=== PATIENT | male | born 1945 | race Caucasian/White ===

== ENCOUNTER 2018-10-26 15:56 | Observation (INO) | payer OTHER, MEDICARE ==
[~2018-10-26 15:56] MED LIST: REGADENOSON INJ 0.4 MG/5 ML DISP.SYRIN IV ONE
[2018-10-26] MEDS ORDERED: ASPIRIN 81 MG TABLET, CHEWABLE PO ONE (17:22)
--- NOTE | 2018-10-26 17:27 | ER Document Report ---
ED Medical Screen (RME) - General Chief Complaint: Chest Pain Stated Complaint: CHEST PAIN Time Seen by Provider: 10/26/18 17:15 Notes: 73-year-old male presents emergency department complaining of peripheral edema, fluid retention, intermittent left-sided chest pain and shortness of breath for the past several days. Patient states he knows he should have come in sooner but he was trying to avoid the hospital. Patient states that the chest pain is left-sided and dull and aching. He is also been feeling generally weak. He is worried that his pacemaker may be failing because this is how he felt before he got his pacemaker. TRAVEL OUTSIDE OF THE [place] IN LAST 30 DAYS: No - Related Data Allergies/Adverse Reactions: No Known Allergies Allergy (Unverified 10/26/18 15:57) Past Medical History - General Information source: Patient - Social History Chew tobacco use (# tins/day): No Frequency of alcohol use: Occasional Drug Abuse: None - Past Medical History Cardiac Medical History: Reports: Hx Hypercholesterolemia, Hx Hypertension Endocrine Medical History: Reports: Hx Diabetes Mellitus Type 2 Renal/ Medical History: Denies: Hx Peritoneal Dialysis Past Surgical History: Reports: Hx Appendectomy, Hx Cardiac Surgery - pacemaker, quadruple bypass, Hx Orthopedic Surgery - back, susan knees Review of Systems - Review of Systems Constitutional: See HPI Respiratory: See HPI Gastrointestinal: See HPI Physical Exam - Vital signs Vitals: Temp Pulse Resp BP Pulse Ox 98.7 F 71 17 141/79 H 95 10/26/18 16:12 10/26/18 16:12 10/26/18 16:12 10/26/18 16:12 10/26/18 16:12 Interpretation: Normal - General General appearance: Appears well, Alert - Respiratory Respiratory status: No respiratory distress Chest status: Nontender Breath sounds: Normal Chest palpation: Normal - Cardiovascular Rhythm: Regular Heart sounds: Normal auscultation Murmur: No Course - Vital Signs Vital signs: Temp Pulse Resp BP Pulse Ox 98.7 F 71 17 141/79 H 95 10/26/18 16:12 10/26/18 16:12 10/26/18 16:12 10/26/18 16:12 10/26/18 16:12
[2018-10-26 18:11] LABS: ABSOLUTE BASOPHILS # (AUTO) 0.1 10^3/uL (0.0-0.2); ABSOLUTE EOSINOPHILS # (AUTO) 0.2 10^3/uL (0.0-0.6); ABSOLUTE LYMPHOCYTES (AUTO) 1.6 10^3/uL (0.5-4.7); ABSOLUTE MONOCYTES (AUTO) 0.6 10^3/uL (0.1-1.4); ABSOLUTE NEUT (AUTO) 5.4 10^3/uL (1.7-8.2); BASOPHILS % (AUTO) 1.2 % (0-2); EOSINOPHILS % (AUTO) 2.6 % (0-6); HEMATOCRIT 42.5 % (37.9-51.0); HEMOGLOBIN 14.4 g/dL (13.5-17.0); LYMPHOCYTES % (AUTO) 19.8 % (13-45); MEAN CORPUSCULAR HEMOGLOBIN 33.4 pg (27.0-33.4); MEAN CORPUSCULAR HGB CONC 33.8 g/dL (32.0-36.0); MEAN CORPUSCULAR VOLUME 99 fl (80-97); MONOCYTES % (AUTO) 7.7 % (3-13); PLATELET COUNT 157 10^3/uL (150-450); RED CELL DISTRIBUTION WIDTH 13.8 % (11.5-14.0); SEGMENTED NEUTROPHILS % (AUTO) 68.7 % (42-78); TOTAL CELLS COUNTED % (AUTO) 100 %; WHITE BLOOD COUNT 7.9 10^3/uL (4.0-10.5)
[2018-10-26 18:28] LABS: ALANINE AMINOTRANSFERASE 21 U/L (21-72); ALBUMIN 4.6 g/dL (3.5-5.0); ALKALINE PHOSPHATASE 89 U/L (38-126); ANION GAP 7 (5-19); ASPARTATE AMINO TRANSFERASE 24 U/L (17-59); BILIRUBIN,DIRECT 0.4 mg/dL (0.0-0.4); BLOOD UREA NITROGEN 47 mg/dL (7-20); CALCIUM 11.2 mg/dL (8.4-10.2); CARBON DIOXIDE 32 mmol/L (22-30); CHLORIDE 104 mmol/L (98-107); CREATINE KINASE 60 U/L (55-170); GLUCOSE 176 mg/dL (75-110); POTASSIUM 5.3 mmol/L (3.6-5.0); SODIUM 143.1 mmol/L (137-145); TOTAL PROTEIN 7.6 g/dL (6.3-8.2)
[2018-10-26 18:40] LABS: CREATINE KINASE MB 1.96 ng/mL (<4.55); TROPONIN I 0.013 ng/mL
--- NOTE | 2018-10-26 19:10 | RADIOLOGY REPORT (SQ) ---
EXAM DESCRIPTION: CHEST SINGLE VIEW COMPLETED DATE/TIME: 10/26/2018 6:28 pm REASON FOR STUDY: SOB, chest pain COMPARISON: None. EXAM PARAMETERS: NUMBER OF VIEWS: One view. TECHNIQUE: Single frontal radiographic view of the chest acquired. RADIATION DOSE: NA LIMITATIONS: None. FINDINGS: LUNGS AND PLEURA: No opacities, masses or pneumothorax. No pleural effusion. MEDIASTINUM AND HILAR STRUCTURES: No masses. Contour normal. HEART AND VASCULAR STRUCTURES: Cardiomegaly. No pulmonary edema. BONES: No acute findings. HARDWARE: Pacemaker/defibrillator. Sternotomy wires. OTHER: No other significant finding. IMPRESSION: Cardiomegaly without pulmonary edema. TECHNICAL DOCUMENTATION: JOB ID: [id number] [employer]- All Rights Reserved Reading location - IP/workstation name: [email or web address]
--- NOTE | 2018-10-26 19:10 | EKG REPORT ---
SEVERITY:- ABNORMAL ECG - ATRIAL-SENSED VENTRICULAR-PACED COMPLEXES : Confirmed by: Jamel Marshall 26-Oct-2018 19:09:11
--- NOTE | 2018-10-26 19:30 | ER Document Report ---
ED Cardiac - General Chief Complaint: Chest Pain Stated Complaint: CHEST PAIN Time Seen by Provider: 10/26/18 17:15 Notes: Patient is a 73-year-old male that comes to the emergency department for chief complaint of intermittent chest pain since yesterday, he also reports shortness of breath on exertion and with lying flat since yesterday. He denies cough, fever, nausea/vomiting. He states that he is starting to get swelling on his legs, he has had 6 pound weight gain for the past over the past 3 days, he is taking his Lasix (40 mg a.m. and p.m.). Past medical history includes CABG, AICD placement 5 years ago, chronic kidney disease, insulin-dependent diabetes. Has not had cardiac catheterization since 1996, has not had stress test for the past 3 years. Had cardiology in [place], recently moved here (March 2017). Former smoker. He states he is wondering if his pacemaker is doing okay, had this done 5 years ago, had 6-year battery. TRAVEL OUTSIDE OF THE [place] IN LAST 30 DAYS: No - Related Data Allergies/Adverse Reactions: No Known Allergies Allergy (Unverified 10/26/18 15:57) Past Medical History - General Information source: Patient - Social History Smoking Status: Never Smoker Chew tobacco use (# tins/day): No Frequency of alcohol use: Occasional Drug Abuse: None Lives with: Alone Family History: Reviewed & Not Pertinent Patient has suicidal ideation: No Patient has homicidal ideation: No - Past Medical History Cardiac Medical History: Reports: Hx Coronary Artery Disease, Hx Hypercholesterolemia, Hx Hypertension Endocrine Medical History: Reports: Hx Diabetes Mellitus Type 2 Renal/ Medical History: Denies: Hx Peritoneal Dialysis Past Surgical History: Reports: Hx Appendectomy, Hx Cardiac Surgery - pacemaker, quadruple bypass, Hx Orthopedic Surgery - back, susan knees - Immunizations Immunizations up to date: Yes Hx Diphtheria, Pertussis, Tetanus Vaccination: Yes Review of Systems - Review of Systems Constitutional: No symptoms reported EENT: No symptoms reported Cardiovascular: See HPI Respiratory: No symptoms reported Gastrointestinal: No symptoms reported Genitourinary: No symptoms reported Male Genitourinary: No symptoms reported Musculoskeletal: No symptoms reported Skin: No symptoms reported Hematologic/Lymphatic: No symptoms reported Neurological/Psychological: No symptoms reported Physical Exam - Vital signs Vitals: Temp Pulse Resp BP Pulse Ox 98.7 F 71 17 141/79 H 95 10/26/18 16:12 10/26/18 16:12 10/26/18 16:12 10/26/18 16:12 10/26/18 16:12 - Notes Notes: GENERAL: Alert, interacts well. No acute distress. HEAD: Normocephalic, atraumatic. EYES: Pupils equal, round, and reactive to light. Extraocular movements intact. ENT: Oral mucosa moist, tongue midline. Oropharynx unremarkable. Airway patent. Nares patent, no nasal septal hematoma, TM's intact. NECK: Full range of motion. Supple. Trachea midline. LUNGS: Normal respiratory rate, no signs of distress. Faint rales in the left lower lung bases, otherwise clear. HEART: Regular rate and rhythm. No murmur ABDOMEN: Soft, non-tender. Non-distended. Bowel sounds present in all 4 quadrants. GENITOURINARY: Deferred EXTREMITIES: Moves all 4 extremities spontaneously. Minimal bilateral lower extremity edema, no significant pitting. Normal radial and dorsalis pedis pulses bilaterally. No cyanosis. BACK: no cervical, thoracic, lumbar midline tenderness. No saddle anesthesia, normal distal neurovascular exam. NEUROLOGICAL: Alert and oriented x3. Normal speech. [cranial nerves II through XII grossly intact]. PSYCH: Normal affect, normal mood. SKIN: Warm, dry, normal turgor. No rashes or lesions noted. Course - Re-evaluation Re-evalutation: EKG shows sinus rhythm with atrial sensed ventricular paced complexes at a rate of 72. No T wave inversions or ST segment changes in consecutive leads, no comparison to prior. Chest x-ray without overt failure, shows cardiomegaly. CBC generally unremarkable. Chemistry shows elevated creatinine but patient reports this is probably chronic, BNP is elevated at greater than 5000 but this is also possibly chronic. Because of patient's dyspnea on exertion, weight gain, soft rales on exam, he was given a dose of Lasix. [employer] interrogation was performed for the pacemaker, I spoke to Jose Juan, he states that the battery is doing well, there is one year left on the battery, last interrogation was 1 year ago, no concerning findings noted otherwise. Patient is chest pain-free on my reevaluation, I discussed the workup. Because patient has not had recent workup, has no local follow-up, no local economics professor, and he has been having chest pain and dyspnea on exertion will discuss with hospitalist for admission. Patient states agreement with this plan. 10/26/18 21:[address] Ron, internal medicine, patient will be admitted to telemetry observation. - Vital Signs Vital signs: Temp Pulse Resp BP Pulse Ox 98.5 F 71 16 152/86 H 94 10/26/18 19:58 10/26/18 16:12 10/26/18 22:01 10/26/18 22:01 10/26/18 22:01 - Laboratory Result Diagrams: 10/26/18 17:45 10/26/18 17:45 Laboratory results interpreted by me: 10/26/18 10/26/18 10/26/18 17:45 17:45 17:45 RBC 4.30 L MCV 99 H Potassium 5.3 H Carbon Dioxide 32 H BUN 47 H Creatinine 2.10 H Est GFR ( Amer) 38 L Est GFR (Non-Af Amer) 31 L Glucose 176 H Calcium 11.2 H NT-Pro-B Natriuret Pep 5650 H Discharge - Discharge Clinical Impression: Dyspnea on exertion Chest pain Qualifiers: Chest pain type: unspecified Qualified Code(s): R07.9 - Chest pain, unspecified Condition: Stable Disposition: ADMITTED OBSERVATION Admitting Provider: Hospitalist Unit Admitted: Telemetry
[2018-10-26] MEDS ORDERED: FUROSEMIDE INJ/PF 40 MG/4 ML SDV IV ONE (21:03)
[2018-10-26] MEDS ORDERED: ONDANSETRON 4 MG TAB.RAPDIS PO PRN (21:13)
[2018-10-26] MEDS ORDERED: MAG HYDROX/AL HYDROX/SIMETH SUSP 30 ML UDCUP PO PRN (21:13)
[2018-10-26] MEDS ORDERED: ONDANSETRON HCL INJ/PF 4 MG/2 ML SDV IV PRN (21:13)
[2018-10-26] MEDS ORDERED: MAGNESIUM HYDROXIDE SUSP 30 ML UDCUP PO PRN (21:13)
[2018-10-26] MEDS ORDERED: NITROGLYCERIN 0.4 MG/TAB 25 TAB/BOTTLE SL PRN (21:19)
[2018-10-26] MEDS ORDERED: ACETAMINOPHEN 325 MG TABLET PO PRN (21:19)
[2018-10-26] MEDS ORDERED: MORPHINE SULFATE 10 MG/ML INJ IV PRN ×2 (21:19)
[2018-10-26] MEDS ORDERED: ACETAMINOPHEN 650 MG SUPP.RECT PR PRN (21:19)
[2018-10-26] MEDS ORDERED: GLUCAGON,HUMAN RECOMB 1 MG INJ IM PRN (21:53)
[2018-10-26] MEDS ORDERED: DEXTROSE 50%-WATER 25 GM/50 ML DISP.SYRIN IV PRN ×2 (21:53)
[2018-10-26] MEDS ORDERED: DEXTROSE 40% GEL 15 GM TUBE PO PRN ×2 (21:53)
[2018-10-26] MEDS ORDERED: INSULIN GLARGINE,HUM.REC.ANLOG 300 UNIT/3 ML INSULN.PEN SUBCUT ONE (22:15)
[2018-10-26] MEDS: TRAZODONE HCL 50 MG TABLET PO SCH (22:31)
[2018-10-26] MEDS: ATORVASTATIN CALCIUM 80 MG TABLET PO SCH (22:31)
[2018-10-26] MEDS: HEPARIN SOD (PORCINE) 5,000 UNIT/ML 1 ML SYRINGE SUBCUT SCH (22:31)
--- NOTE | 2018-10-27 00:04 | PDOC H&P ---
History of Present Illness Admission Date/PCP: 10/26/2018 Patient complains of: Chest pain History of Present Illness: YESIKA PARADA is a 73 year old male who presented to the emergency room with a 1 day history of intermittent chest pain associated with dyspnea on exertion, orthopnea and a 6 pound weight gain over the last 72 hours. He further describes his pain as a mild to moderate heaviness/pressure over the left anterior mid-chest, radiating with sharp stabbing sensations in his left a nterior axilla, occurring episodically every 5 or 6 minutes while he is awake, lasting for a 5-6 seconds and resolving spontaneously. He admits to having similar episodes in the past associated with his coronary artery disease. He has not identified any aggravating or ameliorating factors for his chest pain. In the emergency room he was found to have negative cardiac enzymes x1 and an EKG that showed no evidence of acute myocardial ischemia or injury. Because of his extensive cardiac history and his new episode of intermittent chest pain he was admitted to the hospital on observation status for further evaluation including serial cardiac enzymes, serial EKG assessments and a cardiac stress test to evaluate his chest pain as well as an echocardiogram to assess his congestive heart failure. Past Medical History Cardiac Medical History: Reports: Congestive Heart Failure, Coronary Artery Disease, Hyperlipidema, Hypertension Denies: Atrial Fibrillation Pulmonary Medical History: Denies: Asthma, Chronic Obstructive Pulmonary Disease (COPD), Tuberculosis EENT Medical History: Reports: None Neurological Medical History: Denies: Hemorrhagic CVA, Ischemic CVA, Seizures Endocrine Medical History: Reports: Diabetes Mellitus Type 2 Denies: Diabetes Mellitus Type 1, Hyperthyroidism, Hypothyroidism Renal/ Medical History: Reports: Chronic Kidney Disease Denies: Nephrolithiasis Malignancy Medical History: Reports: None GI Medical History: Denies: Cirrhosis, Crohn's Disease, Hepatitis, Ulcerative Colitis Musculoskeltal Medical History: Reports: Arthritis, Other - Chronic lower back pain Denies: Gout Skin Medical History: Denies: Eczema, Psoriasis Psychiatric Medical History: Denies: Alcohol Dependency, Substance Abuse, Tobacco Dependency Traumatic Medical History: Reports: None Hematology: Denies: Anemia, Bleeding Tendencies Infectious Medical History: Reports: None Past Surgical History Past Surgical History: Reports: Appendectomy, Cardiac Catheterization, Coronary Artery Bypass Graft, Internal Defibrillator, Orthopedic Surgery - back (lumbar), bilateral knees Social History Information Source: Patient Lives with: Other - Yifan Parada (relationship not disclosed) Smoking Status: Former Smoker Frequency of Alcohol Use: Occasional Hx Recreational Drug Use: No Drugs: None Hx Prescription Drug Abuse: No - Advance Directive Resuscitation Status: Full Code Surrogate healthcare decision maker:: Yifan Parada Family History Family History: CAD - Mother, father, brothers and sisters Parental Family History Reviewed: Yes Children Family History Reviewed: No Sibling(s) Family History Reviewed.: Yes Medication/Allergy Home Medications: Allopurinol [Zyloprim 100 mg Tablet] 1 tab PO DAILY 10/26/18 Aspirin [Aspirin 81 mg Chewable Tablet] 1 tab PO DAILY 10/26/18 Atorvastatin Calcium [Lipitor 80 mg Tablet] 1 tab PO QHS 10/26/18 Carvedilol 1 tab PO DAILY 10/26/18 Furosemide [Lasix] 1 tab PO DAILY 10/26/18 Insulin Glargine,Hum.rec.anlog [Lantus Insulin 100 Unit/mL] 20 units SUBCUT QHS 10/26/18 Insulin Regular, Human [Novolin R] 1 applic SUBCUT TID 10/26/18 Lisinopril [Prinivil] 1 tab PO DAILY 10/26/18 Multivitamin [Multivitamins] 1 tab PO DAILY 10/26/18 No Home Medications 10/26/18 Pregabalin [Lyrica 25 mg Capsule] 1 tab PO BID 10/26/18 Trazodone HCl 25 mg PO QHS 10/26/18 Allergies/Adverse Reactions: No Known Allergies Allergy (Unverified 10/26/18 15:57) Review of Systems Constitutional: PRESENT: as per HPI, weight gain. ABSENT: chills, fever(s) Eyes: ABSENT: visual disturbances, other - Ocular pain Ears: ABSENT: hearing changes, other - Ear pain Nose, Mouth, and Throat: ABSENT: mouth pain, sore throat Cardiovascular: PRESENT: as per HPI, chest pain, dyspnea on exertion, edema, orthropnea. ABSENT: palpitations Respiratory: PRESENT: as per HPI, dyspnea. ABSENT: cough Gastrointestinal: ABSENT: abdominal pain, constipation, diarrhea, nausea, vomiting Genitourinary: ABSENT: dysuria, hematuria Musculoskeletal: PRESENT: back pain - Chronic lumbar pain X 3-4 years. ABSENT: deformity, joint swelling Integumentary: ABSENT: pruritus, rash Neurological: ABSENT: confusion, convulsions, memory loss, syncope, tremor(s), vertigo Psychiatric: ABSENT: anxiety, depression Endocrine: ABSENT: cold intolerance, heat intolerance Hematologic/Lymphatic: ABSENT: easy bleeding, easy bruising Physical Exam Vital Signs: Temp Pulse Resp BP Pulse Ox 98.7 F 71 14 152/81 H 96 10/26/18 16:12 10/26/18 16:12 10/26/18 20:01 10/26/18 20:01 10/26/18 20:01 Intake & Output 10/24/18 10/25/18 10/26/18 23:59 23:59 23:59 Weight 120.4 kg General appearance: PRESENT: no acute distress, cooperative, obese Head exam: PRESENT: atraumatic, normocephalic Eye exam: PRESENT: EOMI. ABSENT: conjunctival injection, scleral icterus Ear exam: PRESENT: normal external ear exam. ABSENT: bleeding, drainage Mouth exam: PRESENT: dry mucosa, neck supple Neck exam: ABSENT: JVD, thyromegaly, tracheal deviation Respiratory exam: PRESENT: clear to auscultation susan, symmetrical, unlabored Cardiovascular exam: PRESENT: RRR. ABSENT: clicks, gallop, rubs Pulses: PRESENT: normal radial pulses, normal dorsalis pedis pul Vascular exam: PRESENT: normal capillary refill. ABSENT: pallor GI/Abdominal exam: PRESENT: normal bowel sounds, soft Rectal exam: PRESENT: deferred Extremities exam: PRESENT: pedal edema - Trace to 1+ bilaterally. ABSENT: joint swelling Musculoskeletal exam: ABSENT: deformity, dislocation Neurological exam: PRESENT: alert, oriented to person, oriented to place, oriented to time, oriented to situation, CN II-XII grossly intact. ABSENT: motor sensory deficit Psychiatric exam: PRESENT: appropriate affect, normal mood Skin exam: PRESENT: dry, intact, warm. ABSENT: jaundice, rash, urticaria Results Laboratory Results: 10/26/18 17:45 10/26/18 17:45 10/26/18 10/26/18 17:45 17:45 WBC 7.9 RBC 4.30 L Hgb 14.4 Hct 42.5 MCV 99 H MCH 33.4 MCHC 33.8 RDW 13.8 Plt Count 157 Seg Neutrophils % 68.7 Lymphocytes % 19.8 Monocytes % 7.7 Eosinophils % 2.6 Basophils % 1.2 Absolute Neutrophils 5.4 Absolute Lymphocytes 1.6 Absolute Monocytes 0.6 Absolute Eosinophils 0.2 Absolute Basophils 0.1 Sodium 143.1 Potassium 5.3 H Chloride 104 Carbon Dioxide 32 H Anion Gap 7 BUN 47 H Creatinine 2.10 H Est GFR ( Amer) 38 L Est GFR (Non-Af Amer) 31 L Glucose 176 H Calcium 11.2 H Total Bilirubin 1.0 AST 24 ALT 21 Alkaline Phosphatase 89 Total Protein 7.6 Albumin 4.6 10/26/18 10/26/18 10/26/18 17:45 17:45 17:45 Creatine Kinase 60 CK-MB (CK-2) 1.96 Troponin I 0.013 NT-Pro-B Natriuret Pep 5650 H Impressions: Chest X-Ray 10/26/18 17:23 IMPRESSION: Cardiomegaly without pulmonary edema. Assessment & Plan - Diagnosis (1) Acute on chronic congestive heart failure Qualifiers: Heart failure type: unspecified Qualified Code(s): I50.9 - Heart failure, unspecified Is this a current diagnosis for this admission?: Yes Plan: Patient was treated initially with intravenous furosemide in the emergency room. His furosemide will be changed to torsemide at a slightly increased equivalent dose once daily for further control of his congestive heart failure additionally his lisinopril will be exchanged for valsartan and a roughly equivalent dose for treatment of his heart failure. An echocardiogram will be obtained with Dr. Eva heaton. Clinical reevaluation during the patient's hospital course will be ongoing. (2) HTN (hypertension) Qualifiers: Hypertension type: essential hypertension Qualified Code(s): I10 - Essential (primary) hypertension Is this a current diagnosis for this admission?: Yes Plan: Patient will be continued on his current regiment with the exception of changes made for his renal function. Vital signs and laboratory values (metabolic profile and serum magnesium) will be monitored on a regular basis throughout his hospital course to assess the efficacy of therapeutic changes. (3) HLD (hyperlipidemia) Qualifiers: Hyperlipidemia type: unspecified Qualified Code(s): E78.5 - Hyperlipidemia, unspecified Is this a current diagnosis for this admission?: Yes Plan: Patient will be continued on his current statin therapy and a lipid profile will be obtained to assess the efficacy of his current treatment. (4) CKD (chronic kidney disease) stage 3, GFR 30-59 ml/min Is this a current diagnosis for this admission?: Yes Plan: Patient's medications will be adjusted for his renal failure. Diovan will be s ubstituted for lisinopril and torsemide will be substituted for furosemide. Patient's metabolic profile will be assessed on a regular basis throughout his hospital course and follow-up with a corn husker machine operator or primary care provider will be required for reassessment of efficacy of therapy and effect on renal function. (5) Diabetes mellitus type 2 in obese Is this a current diagnosis for this admission?: Yes Plan: Patient will be maintained on his current diabetic therapy and a hemoglobin A1c will be obtained to evaluate the efficacy of that therapy. (6) Coronary artery disease with angina pectoris Qualifiers: Coronary Disease-Associated Artery/Lesion type: unspecified vessel or lesion type [place] vs. transplanted heart: [place] heart Qualified Code(s): I25.119 - Atherosclerotic heart disease of [place] coronary artery with unspecified angina pectoris Is this a current diagnosis for this admission?: Yes Plan: Patient will be admitted for observation on a telemetry unit. Serial cardiac enzymes and EKGs will be obtained. A cardiac stress test and an echocardiogram will be scheduled for the morning. Patient's chest pain will be treated with nitroglycerin sublingually and morphine sulfate administered intravenously on a sliding scale basis as needed for control of his chest pain. Cardiology consultation will be considered as appropriate depending on the results of his evaluations. - Time Time Spent: 30 to 50 Minutes Critical Time spent with patient: Less than 15 minutes Medications reviewed and adjusted accordingly: Yes Anticipated discharge: Home Within: within 48 hours - Inpatient Certification Based on my medical assessment, after consideration of the patient's comorbidities, presenting symptoms, or acuity I expect that the services needed warrant INPATIENT care.: No I certify that my determination is in accordance with my understanding of Medicare's requirements for reasonable and necessary INPATIENT services [42 CFR 412.3e].: No Medical Necessity: Significant Comorbidiites Make Outpatient Treatment Too Risky, Need Close Monitoring Due to Risk of Patient Decompensation, Need For Continuous Telemetry Monitoring, Need for Pain Control, Risk of Complication if Not Cared For in Hospital
[2018-10-27 00:15] LABS: CREATINE KINASE MB 1.83 ng/mL (<4.55); TROPONIN I 0.024 ng/mL
[2018-10-27] MEDS ORDERED: INSULIN GLARGINE,HUM.REC.ANLOG 300 UNIT/3 ML INSULN.PEN SUBCUT ONE (00:47)
[2018-10-27] MEDS: LANSOPRAZOLE 30 MG TAB.RAP.DR PO SCH (05:21)
[2018-10-27] MEDS: HEPARIN SOD (PORCINE) 5,000 UNIT/ML 1 ML SYRINGE SUBCUT SCH ×3 (05:21→21:33)
[2018-10-27 06:16] LABS: ABSOLUTE EOSINOPHILS # (AUTO) 0.2 10^3/uL (0.0-0.6); ABSOLUTE LYMPHOCYTES (AUTO) 1.7 10^3/uL (0.5-4.7); ABSOLUTE MONOCYTES (AUTO) 0.6 10^3/uL (0.1-1.4); ABSOLUTE NEUT (AUTO) 3.8 10^3/uL (1.7-8.2); BASOPHILS % (AUTO) 0.5 % (0-2); EOSINOPHILS % (AUTO) 3.9 % (0-6); HEMATOCRIT 38.5 % (37.9-51.0); LYMPHOCYTES % (AUTO) 26.1 % (13-45); MEAN CORPUSCULAR HEMOGLOBIN 33.2 pg (27.0-33.4); MEAN CORPUSCULAR HGB CONC 33.8 g/dL (32.0-36.0); MEAN CORPUSCULAR VOLUME 98 fl (80-97); MONOCYTES % (AUTO) 9.5 % (3-13); PLATELET COUNT 134 10^3/uL (150-450); RED BLOOD COUNT 3.92 10^6/uL (4.35-5.55); RED CELL DISTRIBUTION WIDTH 14.1 % (11.5-14.0); TOTAL CELLS COUNTED % (AUTO) 100 %; WHITE BLOOD COUNT 6.3 10^3/uL (4.0-10.5)
[2018-10-27 06:38] LABS: BLOOD UREA NITROGEN 47 mg/dL (7-20); CALCIUM 10.6 mg/dL (8.4-10.2); CARBON DIOXIDE 27 mmol/L (22-30); CHLORIDE 105 mmol/L (98-107); GLUCOSE 197 mg/dL (75-110)
[2018-10-27 06:39] LABS: ANION GAP 7 (5-19); CREATINE KINASE 46 U/L (55-170); SODIUM 139.4 mmol/L (137-145); TRIGLYCERIDES 178 mg/dL (<150)
[2018-10-27 06:50] LABS: DIRECT LDL 112 mg/dL (<100)
[2018-10-27 06:51] LABS: CREATINE KINASE MB 1.26 ng/mL (<4.55); TROPONIN I 0.023 ng/mL
[2018-10-27 06:56] LABS: POTASSIUM 4.2 mmol/L (3.6-5.0); VLDL CHOLESTEROL 35.6 mg/dL (10-31)
[2018-10-27 06:57] LABS: FREE T3 4.15 pg/mL (2.77-5.27); FREE T4 (FREE THYROXINE) 1.14 ng/dL (0.78-2.19)
[2018-10-27 07:12] LABS: THYROID STIMULATING HORMONE 1.51 uIU/mL (0.47-4.68)
[2018-10-27] MEDS ORDERED: CARVEDILOL PO SCH (10:00)
[2018-10-27] MEDS ORDERED: INSULIN REGULAR HUMAN SUBCUT SCH (10:00)
[2018-10-27] MEDS ORDERED: FUROSEMIDE 80 MG TABLET PO SCH (10:00)
--- NOTE | 2018-10-27 10:28 | EKG REPORT ---
SEVERITY:- ABNORMAL ECG - A-V DUAL-PACED COMPLEXES W/ SOME INHIBITION : Confirmed by: Jamel Marshall 27-Oct-2018 10:28:11
[2018-10-27] MEDS: CARVEDILOL 12.5 MG TABLET PO SCH (11:44)
[2018-10-27] MEDS: MULTIVITAMIN TABLET PO SCH (11:44)
[2018-10-27] MEDS: ALLOPURINOL 100 MG TABLET PO SCH (11:45)
[2018-10-27] MEDS: TORSEMIDE 20 MG TABLET PO SCH (11:45)
[2018-10-27] MEDS: DOCUSATE SODIUM 100 MG CAPSULE PO SCH ×2 (11:45→17:39)
[2018-10-27] MEDS: VALSARTAN 40 MG TABLET PO SCH (11:46)
[2018-10-27] MEDS: ASPIRIN 81 MG TABLET, CHEWABLE PO SCH (11:47)
[2018-10-27] MEDS: MORPHINE SULFATE 10 MG/ML INJ IV PRN ×2 (12:03→19:59)
[2018-10-27] MEDS: INSULIN REG, HUMAN 100 UNIT/ML 3 ML VIAL (PYX) SUBCUT PRN ×3 (12:03→21:32)
[2018-10-27] MEDS: PREGABALIN 25 MG CAPSULE PO SCH ×2 (12:20→17:38)
[2018-10-27 13:43] LABS: CREATINE KINASE MB 1.24 ng/mL (<4.55); TROPONIN I 0.016 ng/mL
--- NOTE | 2018-10-27 18:30 | PDOC PROGRESS REPORT ---
Subjective Progress Note for:: 10/27/18 Subjective:: No adverse events overnight. No new complaints. Vital signs been stable. Currently without chest pain or shortness of breath. No palpitations. Reason For Visit: CHEST PAIN Physical Exam Vital Signs: Temp Pulse Resp BP Pulse Ox 98.4 F 63 16 112/51 L 96 10/27/18 15:52 10/27/18 15:52 10/27/18 15:52 10/27/18 15:52 10/27/18 15:52 Intake & Output 10/26/18 10/27/18 10/28/18 06:59 06:59 06:59 Intake Total 450 857 Balance 450 857 Weight 105.3 kg General appearance: PRESENT: no acute distress, cooperative, obese Respiratory exam: PRESENT: clear to auscultation susan, symmetrical, unlabored. ABSENT: chest wall tenderness, rales, rhonchi, tachypnea, wheezes Cardiovascular exam: PRESENT: RRR, +S1, +S2 Vascular exam: PRESENT: normal capillary refill GI/Abdominal exam: PRESENT: normal bowel sounds, soft. ABSENT: distended, guarding, rebound, tenderness Extremities exam: ABSENT: clubbing, pedal edema Musculoskeletal exam: PRESENT: ambulatory, normal inspection. ABSENT: deformity Neurological exam: PRESENT: alert, awake, oriented to person, oriented to place, oriented to time Psychiatric exam: PRESENT: appropriate affect, normal mood Skin exam: PRESENT: dry, warm Results Laboratory Results: 10/27/18 06:00 10/27/18 06:00 10/26/18 10/27/18 10/27/18 17:45 06:00 06:00 WBC 6.3 RBC 3.92 L Hgb 13.0 L Hct 38.5 MCV 98 H MCH 33.2 MCHC 33.8 RDW 14.1 H Plt Count 134 L Seg Neutrophils % 60.0 Lymphocytes % 26.1 Monocytes % 9.5 Eosinophils % 3.9 Basophils % 0.5 Absolute Neutrophils 3.8 Absolute Lymphocytes 1.7 Absolute Monocytes 0.6 Absolute Eosinophils 0.2 Absolute Basophils 0.0 Sodium 143.1 139.4 Potassium 5.3 H 4.2 D Chloride 104 105 Carbon Dioxide 32 H 27 Anion Gap 7 7 BUN 47 H 47 H Creatinine 2.10 H 2.03 H Est GFR ( Amer) 38 L 39 L Est GFR (Non-Af Amer) 31 L 33 L Glucose 176 H 197 H Calcium 11.2 H 10.6 H Magnesium 1.9 Total Bilirubin 1.0 AST 24 ALT 21 Alkaline Phosphatase 89 Total Protein 7.6 Albumin 4.6 Triglycerides 178 H Cholesterol 182.30 LDL Cholesterol Direct 112 H VLDL Cholesterol 35.6 H HDL Cholesterol 24 L TSH Free T4 Free T3 pg/mL 10/27/18 06:00 WBC RBC Hgb Hct MCV MCH MCHC RDW Plt Count Seg Neutrophils % Lymphocytes % Monocytes % Eosinophils % Basophils % Absolute Neutrophils Absolute Lymphocytes Absolute Monocytes Absolute Eosinophils Absolute Basophils Sodium Potassium Chloride Carbon Dioxide Anion Gap BUN Creatinine Est GFR ( Amer) Est GFR (Non-Af Amer) Glucose Calcium Magnesium Total Bilirubin AST ALT Alkaline Phosphatase Total Protein Albumin Triglycerides Cholesterol LDL Cholesterol Direct VLDL Cholesterol HDL Cholesterol TSH 1.51 Free T4 1.14 Free T3 pg/mL 4.15 10/26/18 10/26/18 10/26/18 17:45 17:45 17:45 Creatine Kinase 60 CK-MB (CK-2) 1.96 Troponin I 0.013 NT-Pro-B Natriuret Pep 5650 H 10/26/18 10/26/18 10/26/18 21:10 23:45 23:45 Creatine Kinase 61 CK-MB (CK-2) 1.83 Troponin I 0.021 0.024 NT-Pro-B Natriuret Pep 10/27/18 10/27/18 10/27/18 06:00 06:00 06:00 Creatine Kinase Cancelled 46 L CK-MB (CK-2) 1.26 Troponin I 0.023 NT-Pro-B Natriuret Pep 10/27/18 10/27/18 12:35 12:35 Creatine Kinase 55 CK-MB (CK-2) 1.24 Troponin I 0.016 NT-Pro-B Natriuret Pep Impressions: Chest X-Ray 10/26/18 17:23 IMPRESSION: Cardiomegaly without pulmonary edema. Assessment & Plan - Diagnosis (1) Chest pain Qualifiers: Chest pain type: unspecified Qualified Code(s): R07.9 - Chest pain, unspecified Is this a current diagnosis for this admission?: Yes Plan: Currently pain free. Awaiting stress test results. - Time Time Spent with patient: 15-24 minutes
[2018-10-27] MEDS: TRAZODONE HCL 50 MG TABLET PO SCH (21:32)
[2018-10-27] MEDS: ATORVASTATIN CALCIUM 80 MG TABLET PO SCH (21:32)
[2018-10-27] MEDS ORDERED: INSULIN GLARGINE,HUM.REC.ANLOG 300 UNIT/3 ML INSULN.PEN SUBCUT SCH (22:00)
[2018-10-28] MEDS: LANSOPRAZOLE 30 MG TAB.RAP.DR PO SCH (05:08)
[2018-10-28] MEDS: HEPARIN SOD (PORCINE) 5,000 UNIT/ML 1 ML SYRINGE SUBCUT SCH (05:29)
[2018-10-28] MEDS: PREGABALIN 25 MG CAPSULE PO SCH (09:03)
[2018-10-28] MEDS: CARVEDILOL 12.5 MG TABLET PO SCH (09:03)
[2018-10-28] MEDS: ALLOPURINOL 100 MG TABLET PO SCH (09:03)
[2018-10-28] MEDS: TORSEMIDE 20 MG TABLET PO SCH (09:03)
[2018-10-28] MEDS: MULTIVITAMIN TABLET PO SCH (09:03)
[2018-10-28] MEDS: DOCUSATE SODIUM 100 MG CAPSULE PO SCH (09:04)
[2018-10-28] MEDS: ASPIRIN 81 MG TABLET, CHEWABLE PO SCH (09:04)
[2018-10-28] MEDS: VALSARTAN 40 MG TABLET PO SCH (09:04)
[2018-10-28 10:52] VITALS: BP 111/49
--- NOTE | 2018-10-28 17:00 | PDOC DISCHARGE SUMMARY ---
General - Admit/Disc Date/PCP Admission Date/Primary Care Provider: 10/26/18 21:41 Discharge Date: 10/28/18 - Discharge Diagnosis (1) Chest pain Is this a current diagnosis for this admission?: Yes Summary: Ruled out for acute AZ. Stress test was negative for anything acute. He will go home on his usual medications. He is going to follow-up with Dr. Velasquez. - Additional Information Resuscitation Status: Full Code Discharge Diet: Cardiac, Diabetic Discharge Activity: Activity As Tolerated, Balance Activity w/Rest, Weigh Daily Home Medications: Allopurinol [Zyloprim 100 mg Tablet] 100 mg PO DAILY 10/26/18 Aspirin [Aspirin 81 mg Chewable Tablet] 81 mg PO DAILY 10/26/18 Atorvastatin Calcium [Lipitor 80 mg Tablet] 80 mg PO QHS 10/26/18 Carvedilol 25 mg PO DAILY 10/26/18 Furosemide [Lasix] 80 mg PO DAILY 10/26/18 Insulin Glargine,Hum.rec.anlog [Lantus Insulin 100 Unit/mL] 20 units SUBCUT QHS 10/26/18 Lisinopril [Prinivil] 5 mg PO BID 10/26/18 Multivitamin [Multivitamins] 1 tab PO DAILY 10/26/18 Pregabalin [Lyrica 25 mg Capsule] 25 mg PO BID 10/26/18 Trazodone HCl 25 mg PO QHS 10/26/18 Insulin Regular, Human [Novolin R] 6 unit INJ ACBRKFST 10/27/18 Insulin Regular, Human [Novolin R] 6 unit INJ ACLUNCH 10/27/18 Insulin Regular, Human [Novolin R] 10 unit INJ ACSUPPER 10/27/18 Isosorbide Mononitrate [Isosorbide Mononitrate ER] 120 mg PO DAILY 10/27/18 History of Present Illness History of Present Illness: YESIKA PARADA is a 73 year old male who presented to the emergency room with a 1 day history of intermittent chest pain associated with dyspnea on exertion, orthopnea and a 6 pound weight gain over the last 72 hours. He further describes his pain as a mild to moderate heaviness/pressure over the left anterior mid-chest, radiating with sharp stabbing sensations in his left anteri or axilla, occurring episodically every 5 or 6 minutes while he is awake, lasting for a 5-6 seconds and resolving spontaneously. He admits to having similar episodes in the past associated with his coronary artery disease. He has not identified any aggravating or ameliorating factors for his chest pain. In the emergency room he was found to have negative cardiac enzymes x1 and an EKG that showed no evidence of acute myocardial ischemia or injury. Because of his extensive cardiac history and his new episode of intermittent chest pain he was admitted to the hospital on observation status for further evaluation including serial cardiac enzymes, serial EKG assessments and a cardiac stress te st to evaluate his chest pain as well as an echocardiogram to assess his congestive heart failure. Hospital Course Hospital Course: He ruled out for acute AZ and has been pain-free since she has been here. He had a stress test that showed no reversible ischemia, dilated left ventricle, LVEF approximately 20%, evidence of old inferior wall AZ and old apical AZ. 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 Velasquez. He will continue on his usual home medications. His labs and examination were reassuring and he was discharged in good condition. Physical Exam Vital Signs: Temp Pulse Resp BP Pulse Ox 98.4 F 60 15 111/49 L 95 10/28/18 10:45 10/28/18 10:45 10/28/18 10:45 10/28/18 10:45 10/28/18 10:45 Intake & Output 10/27/18 10/28/18 10/29/18 06:59 06:59 06:59 Intake Total 450 1271 Balance 450 1271 Weight 105.3 kg 105.8 kg General appearance: PRESENT: no acute distress, cooperative, obese Respiratory exam: PRESENT: clear to auscultation susan, symmetrical, unlabored. ABSENT: chest wall tenderness, rales, rhonchi, tachypnea, wheezes Cardiovascular exam: PRESENT: RRR, +S1, +S2 Vascular exam: PRESENT: normal capillary refill GI/Abdominal exam: PRESENT: normal bowel sounds, soft. ABSENT: distended, guarding, rebound, tenderness Extremities exam: ABSENT: clubbing, pedal edema Musculoskeletal exam: PRESENT: ambulatory, normal inspection. ABSENT: deformity Neurological exam: PRESENT: alert, awake, oriented to person, oriented to place, oriented to time Psychiatric exam: PRESENT: appropriate affect, normal mood Skin exam: PRESENT: dry, warm Results Results Laboratory Results: 10/27/18 06:00 10/27/18 06:00 10/26/18 10/26/18 10/26/18 17:45 17:45 17:45 Creatine Kinase 60 CK-MB (CK-2) 1.96 Troponin I 0.013 NT-Pro-B Natriuret Pep 5650 H 10/26/18 10/26/18 10/26/18 21:10 23:45 23:45 Creatine Kinase 61 CK-MB (CK-2) 1.83 Troponin I 0.021 0.024 NT-Pro-B Natriuret Pep 10/27/18 10/27/18 10/27/18 06:00 06:00 06:00 Creatine Kinase Cancelled 46 L CK-MB (CK-2) 1.26 Troponin I 0.023 NT-Pro-B Natriuret Pep 10/27/18 10/27/18 12:35 12:35 Creatine Kinase 55 CK-MB (CK-2) 1.24 Troponin I 0.016 NT-Pro-B Natriuret Pep Impressions: Chest X-Ray 10/26/18 17:23 IMPRESSION: Cardiomegaly without pulmonary edema. Qualifiers - * PATIENT BEING DISCHARGED WITH ANY OF THE FOLLOWING DIAGNOSIS: No
--- NOTE | 2018-10-31 15:32 | DRAGON STRESS TEST REPORT ---
Intravenous Lexiscan Cardiolite stress test using single photon emmision computerized tomography. Date of procedure: 10/27/2018. Ordering Provider: Dr. Ron. Patient's status: In Patient. Indication: Chest pain. Coronary risk factors: Age, diabetes mellitus, hypertension, dyslipidemia, tobacco abuse disorder, and family history of coronary artery disease. Resting EKG: Atrial tracking and ventricular paced rhythm. Stress EKG: Nondiagnostic for ischemia due to ventricular paced rhythm. The patient had no chest pain or discomfort, and there were no arrhythmias seen.. Reason for termination: Protocol. Conclusions: Normal EKG and hemodynamic response to IV Lexiscan. Nuclear data: At rest the patient was given 15.21 millicuries of technetium 99m sestamibi injected intravenously. As per protocol rest non gated SPECT images were obtained. Subsequently the patient was given intravenous Lexiscan at a dose of 0.4 mg in 5 mL intravenously, followed by flush with normal saline. Subsequently the stress dose of 42.3 millicuries of technetium 99m sestamibi was injected intravenously. As per protocol stress gated images were obtained. Nuclear interpretation: Review of images showed that there was a perfusion defect in the inferior wall in both rest and stress images. This inferior wall had decreased motion contraction and thickening, consistent with a prior myocardial infarction. There is also a small area of perfusion defect involving the left ventricle apex in both the rest and stress images. This area also had decreased motion contraction and thickening, suggestive of prior OR. The rest of the segments of the myocardium had normal perfusion at rest, and normal perfusion post stress with IV Lexiscan. The rest of the segments of the myocardium had normal motion, contraction, and thickening by gated study. T. I D. ratio was normal at 1.07. There is no transient ischemic calcification of the left ventricle. Computer read rest, and stress left ventricular ejection fraction were 27 %, and 21 %, respectively. Conclusion: 1. There is no scintigraphic evidence of Lexiscan induced myocardial ischemia. 2. There is scintigraphic evidence of myocardial infarction/scar involving the inferior wall, and a small area of left ventricular apex. 3. Findings consistent with ischemic cardiomyopathy with severely depressed LV ejection fraction. Recommendations: 1. Check echo for LV ejection fraction correlation. 2. Cardiac catheterization if the patient continues to have chest pain. 3.Aggressive risk factor modification, and treating the underlying co- morbidities, and treatment of ischemic cardiomyopathy. MTDD
--- NOTE | 2018-11-01 13:15 | XCELERA REPORT ---
[address] [address] Transthoracic Echocardiogram Report Name: YESIKA PARADA Age: 73 yrs Gender: Male : 1945 Patient Status: Inpatient Patient Location: [address] [place] [address] Study Date: 10/27/2018 03:11 PM Procedure: A two-dimensional transthoracic echocardiogram with color flow and Doppler was performed. The study was technically limited with all images being suboptimal in quality. Reason For Study: chest pain History: Chest pain. Ordering Physician: KULWINDER GUZMAN Performed By: Celestina Queen Interpretation Summary The left ventricle is severely dilated. There is normal left ventricular wall thickness. LV EF is less than 20% Left ventricular systolic function is severely reduced. There is severe global hypokinesis of the left ventricle. The right ventricle is grossly normal size. The right ventricle is not well visualized secondary to technical limitations There is a pacemaker lead in the right ventricle. The left atrium is mildly dilated. There is no evidence of mitral valve prolapse. There is no vegetation seen on the mitral valve. There is no mitral valve stenosis. There is a trace to mild amount of mitral regurgitation There is no aortic valvular vegetation. There is no aortic valve stenosis There is no LVOT obstruction. No aortic regurgitation is present. There is no tricuspid stenosis. No tricuspid regurgitation. Unable to calculate RVSP due lack of TR jet. There is no pulmonic valvular stenosis. There is a trace amount of pulmonic regurgitation The aortic root is normal size. There is no pericardial effusion. MMode/2D Measurements & Calculations RVDd: 3.7 cm LVIDd: 7.9 cm FS: 9.0 % Ao root diam: 3.4 cm IVSd: 1.1 cm LVIDs: 7.2 cm EDV(Teich): 334.3 ml Ao root area: 9.0 cm2 LVPWd: 1.0 cm ESV(Teich): 270.6 ml EF(Teich): 19.1 % Doppler Measurements & Calculations MV E max eleuterio: MV dec slope: Ao V2 max: LV V1 max P.2 cm/sec 124.2 cm/sec 2.3 mmHg MV A max eleuterio: 951.3 cm/sec2 Ao max PG: LV V1 max: 78.9 cm/sec MV dec time: 0.11 sec 6.2 mmHg 75.7 cm/sec MV E/A: 1.3 PA V2 max: 126.8 cm/sec PA max P.4 mmHg Left Ventricle The left ventricle is severely dilated. There is normal left ventricular wall thickness. LV EF is less than 20%. Left ventricular systolic function is severely reduced. There is severe global hypokinesis of the left ventricle. There is no thrombus. Right Ventricle The right ventricle is grossly normal size. The right ventricle is not well visualized secondary to technical limitations. There is a pacemaker lead in the right ventricle. Atria The right atrium is normal. The left atrium is mildly dilated. Mitral Valve There is no evidence of mitral valve prolapse. There is no vegetation seen on the mitral valve. There is no mitral valve stenosis. There is a trace to mild amount of mitral regurgitation. Aortic Valve There is no aortic valvular vegetation. There is no aortic valve stenosis. There is no LVOT obstruction. No aortic regurgitation is present. Tricuspid Valve There is no tricuspid stenosis. No tricuspid regurgitation. Unable to calculate RVSP due lack of TR jet. Pulmonic Valve There is no pulmonic valvular stenosis. There is a trace amount of pulmonic regurgitation. Great Vessels The aortic root is normal size. Effusions There is no pericardial effusion. : KULWINDER GUZMAN Lakshmi
== END 2018-10-28 12:02 | disposition home or self-care (01) ==
LOC: ER 15:56 → EH 21:41 → 5 22:45
PROVIDERS: ADMIT Emergency Medicine; ATTEND Emergency Medicine
PROC: 4B02XTZ Measurement of Cardiac Defibrillator, External Approach (ICD-10-PCS; principal; 2018-10-26)
DX: R07.89 Other chest pain (principal); I25.119 Atherosclerotic heart disease of native coronary artery with unspecified angina pectoris; E11.22 Type 2 diabetes mellitus with diabetic chronic kidney disease; I13.0 Hypertensive heart and chronic kidney disease with heart failure and stage 1 through stage 4 chronic kidney disease, or unspecified chronic kidney disease; N18.3 Chronic kidney disease, stage 3 (moderate); I50.9 Heart failure, unspecified; E66.9 Obesity, unspecified; Z79.82 Long term (current) use of aspirin; G89.29 Other chronic pain; M54.5 Low back pain; E78.5 Hyperlipidemia, unspecified; Z95.1 Presence of aortocoronary bypass graft; Z79.899 Other long term (current) drug therapy; Z90.49 Acquired absence of other specified parts of digestive tract; Z79.4 Long term (current) use of insulin; Z87.891 Personal history of nicotine dependence; Z82.49 Family history of ischemic heart disease and other diseases of the circulatory system; Z45.02 Encounter for adjustment and management of automatic implantable cardiac defibrillator; Z98.890 Other specified postprocedural states
CPT/HCPCS: 93005 ×2; 99285; 96374; 36415 ×2; 84439; 82553 ×2; 82962 ×2; 82550 ×2; 83735; 84443; 85025 ×2; 80048; 80053; 84484 ×2; 84481; 83036; 80061; 83880; 93306; 93017; 71045; 78452; 93010 ×2; 93296; A9500; J2785; J1940; J2270; J1815; J3490 ×5; Q9969; G0378

== ENCOUNTER 2019-02-19 11:19 | Emergency (ER) | payer OTHER, MEDICARE ==
--- NOTE | 2019-02-19 11:45 | ER Document Report ---
ED Medical Screen (RME) - General Chief Complaint: Shortness Of Breath Stated Complaint: SHORT OF BREATH Time Seen by Provider: 02/19/19 11:38 Mode of Arrival: Wheelchair Information source: Patient Notes: Patient presents with a 4-day history of shortness of breath and fluid retention to the lower extremities. Patient does have a history of congestive heart failure and reports a 12-15 pound weight gain over the past week. Patient denies any chest pain symptoms. Patient denies any cough. Patient denies any fever. hx: CHF, CKD, diabetes, quadruple bypass, pacemaker I have greeted and performed a rapid initial assessment of this patient. A comprehensive ED assessment and evaluation of the patient, analysis of test results and completion of the medical decision making process will be conducted by additional ED providers. TRAVEL OUTSIDE OF THE [place] IN LAST 30 DAYS: No - Related Data Allergies/Adverse Reactions: No Known Allergies Allergy (Verified 02/19/19 11:21) Past Medical History - Social History Chew tobacco use (# tins/day): No Frequency of alcohol use: None Drug Abuse: None - Past Medical History Cardiac Medical History: Reports: Hx Congestive Heart Failure, Hx Coronary Artery Disease, Hx Hypercholesterolemia, Hx Hypertension Denies: Hx Atrial Fibrillation Pulmonary Medical History: Denies: Hx Asthma, Hx COPD, Hx Tuberculosis Neurological Medical History: Denies: Hx Seizures Endocrine Medical History: Reports: Hx Diabetes Mellitus Type 2. Denies: Hx Diabetes Mellitus Type 1, Hx Hyperthyroidism, Hx Hypothyroidism Renal/ Medical History: Denies: Hx Peritoneal Dialysis GI Medical History: Denies: Hx Cirrhosis, Hx Crohn's Disease, Hx Hepatitis, Hx Ulcerative Colitis Musculoskeltal Medical History: Reports Hx Arthritis, Denies Hx Gout Skin Medical History: Denies Hx Eczema, Denies Hx Psoriasis Infectious Medical History: Denies: Hx Hepatitis Past Surgical History: Reports: Hx Appendectomy, Hx Cardiac Catheterization, Hx Cardiac Surgery - pacemaker, quadruple bypass, Hx Coronary Artery Bypass Graft, Hx Internal Defibrillator, Hx Orthopedic Surgery - back, susan knees, Hx Pacemaker - AICD - Immunizations Immunizations up to date: Yes Hx Diphtheria, Pertussis, Tetanus Vaccination: Yes History of Influenza Vaccine for 08/2017 - 12/2017 Season: Yes Influenza Administration Date for 08/2017 - 12/2017 Season: 09/30/18 Physical Exam - Vital signs Vitals: Temp Pulse Resp BP Pulse Ox 97.6 F 61 18 148/73 H 96 02/19/19 11:24 02/19/19 11:24 02/19/19 11:24 02/19/19 11:24 02/19/19 11:24 - Respiratory Respiratory status: No respiratory distress. No: Tachypnea Chest status: Nontender Breath sounds: Rales - faint to bases Course - Vital Signs Vital signs: Temp Pulse Resp BP Pulse Ox 97.6 F 61 18 148/73 H 96 02/19/19 11:24 02/19/19 11:24 02/19/19 11:24 02/19/19 11:24 02/19/19 11:24
[2019-02-19 12:17] LABS: ABSOLUTE BASOPHILS # (AUTO) 0.1 10^3/uL (0.0-0.2); ABSOLUTE EOSINOPHILS # (AUTO) 0.2 10^3/uL (0.0-0.6); ABSOLUTE LYMPHOCYTES (AUTO) 1.2 10^3/uL (0.5-4.7); ABSOLUTE MONOCYTES (AUTO) 0.5 10^3/uL (0.1-1.4); ABSOLUTE NEUT (AUTO) 4.7 10^3/uL (1.7-8.2); BASOPHILS % (AUTO) 1.3 % (0-2); EOSINOPHILS % (AUTO) 3.1 % (0-6); HEMATOCRIT 39.1 % (37.9-51.0); HEMOGLOBIN 13.5 g/dL (13.5-17.0); LYMPHOCYTES % (AUTO) 17.8 % (13-45); MEAN CORPUSCULAR HEMOGLOBIN 34.5 pg (27.0-33.4); MEAN CORPUSCULAR HGB CONC 34.6 g/dL (32.0-36.0); MEAN CORPUSCULAR VOLUME 100 fl (80-97); MONOCYTES % (AUTO) 7.8 % (3-13); PLATELET COUNT 153 10^3/uL (150-450); RED BLOOD COUNT 3.92 10^6/uL (4.35-5.55); TOTAL CELLS COUNTED % (AUTO) 100 %; WHITE BLOOD COUNT 6.7 10^3/uL (4.0-10.5)
[2019-02-19 12:35] LABS: ALANINE AMINOTRANSFERASE 21 U/L (21-72); ALBUMIN 4.1 g/dL (3.5-5.0); ALKALINE PHOSPHATASE 74 U/L (38-126); ANION GAP 9 (5-19); ASPARTATE AMINO TRANSFERASE 21 U/L (17-59); BILIRUBIN,DIRECT 0.5 mg/dL (0.0-0.4); BLOOD UREA NITROGEN 62 mg/dL (7-20); CALCIUM 10.4 mg/dL (8.4-10.2); CARBON DIOXIDE 26 mmol/L (22-30); CHLORIDE 103 mmol/L (98-107); CREATINE KINASE 59 U/L (55-170); GLUCOSE 187 mg/dL (75-110); TOTAL PROTEIN 7.2 g/dL (6.3-8.2)
[2019-02-19 12:47] LABS: CREATINE KINASE MB 1.67 ng/mL (<4.55); TROPONIN I 0.016 ng/mL
--- NOTE | 2019-02-19 12:51 | RADIOLOGY REPORT (SQ) ---
EXAM DESCRIPTION: CHEST 2 VIEWS COMPLETED DATE/TIME: 02/19/2019 12:38 pm REASON FOR STUDY: sob, hx CHF COMPARISON: PA chest 10/26/2018 EXAM PARAMETERS: NUMBER OF VIEWS: two views TECHNIQUE: Digital Frontal and Lateral radiographic views of the chest acquired. RADIATION DOSE: NA LIMITATIONS: none FINDINGS: LUNGS AND PLEURA: Few Da lines at both lung bases indicating mild interstitial edema. No pleural effusions. No dense consolidation worrisome for pneumonia. Lungs are hyperinflated with flattening of the hemid iaphragms from obstructive disease. MEDIASTINUM AND HILAR STRUCTURES: No masses or contour abnormalities. HEART AND VASCULAR STRUCTURES: Old sternotomy for CABG. No cardiomegaly BONES: No acute findings. HARDWARE: Left-sided pacemaker OTHER: No other significant finding. IMPRESSION: Mild interstitial edema TECHNICAL DOCUMENTATION: JOB ID: [id number] [employer]- All Rights Reserved Reading location - IP/workstation name: [email or web address]
[2019-02-19] MEDS ORDERED: MORPHINE SULFATE 10 MG/ML INJ IV ONE (12:55)
[2019-02-19] MEDS ORDERED: FUROSEMIDE INJ/PF 40 MG/4 ML SDV IV ONE (12:55)
[2019-02-19] MEDS ORDERED: ONDANSETRON HCL INJ/PF 4 MG/2 ML SDV IV ONE (12:55)
--- NOTE | 2019-02-19 13:33 | ER Document Report ---
Entered by JULIANN YOUNG SCRIBE 02/19/19 1304 Acting as scribe for:ANAYA MARIA MD ED General - General Chief Complaint: Shortness Of Breath Stated Complaint: SHORT OF BREATH Time Seen by Provider: 02/19/19 11:38 Mode of Arrival: Wheelchair Information source: Patient Notes: Patient is a 73 year old male with hypertension, CHF, CKD, hyperlipidemia, quadruple bypass, insulin dependent diabetes, pacemaker and a history of CO presents to the emergency department complaining of shortness of breath and bilateral lower extremity swelling onset 4 days ago. He states his shortness of breath has been worsening over the last 4 days. Patient states he has had a 12- 15lb weight gain over the past week and reports his BLE are very swollen. Patient presented to the emergency department on 10/26/18 complaining of similar symptoms and was admitted to telemetry. TRAVEL OUTSIDE OF THE [place] IN LAST 30 DAYS: No - Related Data Allergies/Adverse Reactions: No Known Allergies Allergy (Verified 02/19/19 11:21) Past Medical History - General Information source: Patient - Social History Smoking Status: Former Smoker - quit 22 y.a as of 2018 Chew tobacco use (# tins/day): No Frequency of alcohol use: None Drug Abuse: None Family History: Reviewed & Not Pertinent Patient has suicidal ideation: No Patient has homicidal ideation: No - Past Medical History Cardiac Medical History: Reports: Hx Congestive Heart Failure, Hx Coronary Artery Disease, Hx Hypercholesterolemia, Hx Hypertension Endocrine Medical History: Reports: Hx Diabetes Mellitus Type 2 Musculoskeletal Medical History: Reports Hx Arthritis Past Surgical History: Reports: Hx Appendectomy, Hx Cardiac Catheterization, Hx Cardiac Surgery - pacemaker, quadruple bypass, Hx Coronary Artery Bypass Graft, Hx Internal Defibrillator, Hx Orthopedic Surgery - back, susan knees, Hx Pacemaker - AICD - Immunizations Immunizations up to date: Yes Hx Diphtheria, Pertussis, Tetanus Vaccination: Yes Review of Systems - Review of Systems Constitutional: No symptoms reported EENT: No symptoms reported Cardiovascular: No symptoms reported Respiratory: See HPI, Short of breath Gastrointestinal: No symptoms reported Genitourinary: No symptoms reported Male Genitourinary: No symptoms reported Musculoskeletal: See HPI, Leg swelling Skin: No symptoms reported Hematologic/Lymphatic: No symptoms reported Neurological/Psychological: No symptoms reported -: Yes All other systems reviewed and negative Physical Exam - Vital signs Vitals: Temp Pulse Resp BP Pulse Ox 97.6 F 61 18 148/73 H 96 02/19/19 11:24 02/19/19 11:24 02/19/19 11:24 02/19/19 11:24 02/19/19 11:24 - Notes Notes: GENERAL: Alert, interacts well. No acute distress. HEAD: Normocephalic, atraumatic. EYES: Pupils equal, round, and reactive to light. Extraocular movements intact. ENT: Oral mucosa moist, tongue midline. NECK: Full range of motion. Supple. Trachea midline. LUNGS: Clear to auscultation bilaterally, no wheezes, rales, or rhonchi. No respiratory distress. HEART: Regular rate and rhythm. No murmurs, gallops, or rubs. ABDOMEN: Soft, obese, non-tender. Non-distended. Bowel sounds present in all 4 quadrants. No guarding, rigidity, or rebound. EXTREMITIES: Moves all 4 extremities spontaneously. Pitting edema to the BLE, R>L, tender to palpation. NEUROLOGICAL: Alert and oriented x3. Normal speech. PSYCH: Normal affect, normal mood. SKIN: Warm, dry. Course - Vital Signs Vital signs: Temp Pulse Resp BP Pulse Ox 97.6 F 61 18 148/73 H 96 02/19/19 11:24 02/19/19 11:24 02/19/19 11:24 02/19/19 11:24 02/19/19 11:24 - Laboratory Result Diagrams: 02/19/19 12:00 02/19/19 12:00 Laboratory results interpreted by me: 02/19/19 02/19/19 02/19/19 12:00 12:00 12:00 RBC 3.92 L MCV 100 H MCH 34.5 H BUN 62 H Creatinine 2.33 H Est GFR ( Amer) 34 L Est GFR (Non-Af Amer) 28 L Glucose 187 H Calcium 10.4 H Direct Bilirubin 0.5 H NT-Pro-B Natriuret Pep 4160 H - Diagnostic Test Radiology reviewed: Image reviewed, Reports reviewed - Chest x-ray shows cardiomegaly with mild interstitial edema - EKG Interpretation by Ks EKG shows normal: [place], Intervals, QRS Complexes, ST-T Waves Rate: Normal - 61 Rhythm: Other - Ventricular paced complexes - Consults Dr. Velasquez Time consulted: 13:55 Consulted provider: follow-up in office - Discussed the patient's case including lab work from 10/26/2018, compared to today. Also discussed the Lexiscan stress test. Recommends increasing the patient's Lasix and follow-up in the office tomorrow. Discharge - Discharge Clinical Impression: Dyspnea on exertion, Fluid retention in legs, Pulmonary vascular congestion, Congestive cardiomyopathy Chronic renal insufficiency Qualifiers: Chronic kidney disease stage: unspecified stage Qualified Code(s): N18.9 - Chronic kidney disease, unspecified Condition: Stable Disposition: HOME, SELF-CARE Additional Instructions: Increase your Lasix to 80 mg twice daily. Elevate your legs to help reduce the swelling. Call Dr. Velasquez's office in the morning for an appointment time tomorrow. [facility] RETURN TO THE EMERGENCY ROOM IF ANY NEW OR WORSENING SYMPTOMS. Referrals: DRE VELASQUEZ MD [ACTIVE STAFF] - Follow up tomorrow (Call the office Wednesday morning to schedule a Wednesday appointment.) Scribe Attestation: 02/19/19 13:33 I personally performed the services described in the documentation, reviewed and edited the documentation which was dictated to the scribe in my presence, and it accurately records my words and actions. I personally performed the services described in the documentation, reviewed and edited the documentation which was dictated to the scribe in my presence, and it accurately records my words and actions.
[2019-02-19 14:41] VITALS: BP 137/74
--- NOTE | 2019-02-19 20:56 | EKG REPORT ---
SEVERITY:- ABNORMAL ECG - VENTRICULAR-PACED COMPLEXES : Confirmed by: Linda Velasquez MD 19-Feb-2019 20:54:52
== END 2019-02-19 14:41 | disposition home or self-care (01) ==
LOC: ER 11:19
DX: R06.00 Dyspnea, unspecified (principal); R60.1 Generalized edema; I42.8 Other cardiomyopathies; I87.8 Other specified disorders of veins; R06.02 Shortness of breath; E11.22 Type 2 diabetes mellitus with diabetic chronic kidney disease; N18.9 Chronic kidney disease, unspecified; I13.0 Hypertensive heart and chronic kidney disease with heart failure and stage 1 through stage 4 chronic kidney disease, or unspecified chronic kidney disease; I50.9 Heart failure, unspecified; Z95.1 Presence of aortocoronary bypass graft; Z95.810 Presence of automatic (implantable) cardiac defibrillator
CPT/HCPCS: 93005; 99285; 96374; 96375; 36415; 82553; 82550; 85025; 80053; 84484; 83880; 71046; 93010; J1940; J2270; J2405

== ENCOUNTER 2019-04-05 16:05 | Inpatient (IN) | payer OTHER, MEDICARE ==
--- NOTE | 2019-04-05 16:26 | ER Document Report ---
ED Medical Screen (RME) - General Chief Complaint: Breathing Difficulty Stated Complaint: DIFFICULTY BREATHING Time Seen by Provider: 04/05/19 16:19 Mode of Arrival: Wheelchair Information source: Patient Notes: Patient presents complaining of difficulty breathing for the past 3 days. Patient also reports a 3 pound weight gain over the same 3 days. Patient denies any chest pain. Patient does have a history of CHF and suspected exacerbation at this time. hx: CHF, hypertension, diabetes, CKD I have greeted and performed a rapid initial assessment of this patient. A comprehensive ED assessment and evaluation of the patient, analysis of test results and completion of the medical decision making process will be conducted by additional ED providers. TRAVEL OUTSIDE OF THE [place] IN LAST 30 DAYS: No - Related Data Allergies/Adverse Reactions: No Known Allergies Allergy (Verified 02/19/19 11:21) Past Medical History - Social History Chew tobacco use (# tins/day): No Drug Abuse: None - Past Medical History Cardiac Medical History: Reports: Hx Congestive Heart Failure, Hx Coronary Artery Disease, Hx Hypercholesterolemia, Hx Hypertension Denies: Hx Atrial Fibrillation Pulmonary Medical History: Denies: Hx Asthma, Hx COPD, Hx Tuberculosis Neurological Medical History: Denies: Hx Seizures Endocrine Medical History: Reports: Hx Diabetes Mellitus Type 2. Denies: Hx Diabetes Mellitus Type 1, Hx Hyperthyroidism, Hx Hypothyroidism Renal/ Medical History: Denies: Hx Peritoneal Dialysis GI Medical History: Denies: Hx Cirrhosis, Hx Crohn's Disease, Hx Hepatitis, Hx Ulcerative Colitis Musculoskeltal Medical History: Reports Hx Arthritis, Denies Hx Gout Skin Medical History: Denies Hx Eczema, Denies Hx Psoriasis Infectious Medical History: Denies: Hx Hepatitis Past Surgical History: Reports: Hx Appendectomy, Hx Cardiac Catheterization, Hx Cardiac Surgery - pacemaker, quadruple bypass, Hx Coronary Artery Bypass Graft, Hx Internal Defibrillator, Hx Orthopedic Surgery - back, susan knees, Hx Pacemaker - AICD - Immunizations Immunizations up to date: Yes Hx Diphtheria, Pertussis, Tetanus Vaccination: Yes History of Influenza Vaccine for 08/2017 - 12/2017 Season: Yes Influenza Administration Date for 08/2017 - 12/2017 Season: 09/30/18 Physical Exam - Vital signs Vitals: Temp Pulse Resp BP Pulse Ox 98.6 F 70 18 139/62 H 95 04/05/19 16:18 04/05/19 16:18 04/05/19 16:18 04/05/19 16:18 04/05/19 16:18 - Respiratory Respiratory status: No respiratory distress Breath sounds: Nonproductive cough, Rales - Faint to bilateral bases Course - Vital Signs Vital signs: Temp Pulse Resp BP Pulse Ox 98.6 F 70 18 139/62 H 95 04/05/19 16:18 04/05/19 16:18 04/05/19 16:18 04/05/19 16:18 04/05/19 16:18
--- NOTE | 2019-04-05 16:52 | RADIOLOGY REPORT (SQ) ---
EXAM DESCRIPTION: CHEST 2 VIEWS COMPLETED DATE/TIME: 04/05/2019 4:35 pm REASON FOR STUDY: diff breathing COMPARISON: 02/19/2019 NUMBER OF VIEWS: Two views. TECHNIQUE: Frontal and lateral radiographic views of the chest acquired. LIMITATIONS: None. FINDINGS: LUNGS AND PLEURA: No opacities, masses or pneumothorax. No pleural effusion. MEDIASTINUM AND HILAR STRUCTURES: No masses or contour abnormality. HEART AND VASCULAR STRUCTURES: Cardiac enlargement. Vascular congestion. BONES: No acute findings. HARDWARE: Stable cardiac hardware. OTHER: No other significant finding. IMPRESSION: CARDIAC ENLARGEMENT. VASCULAR CONGESTION. TECHNICAL DOCUMENTATION: JOB ID: [id number] [employer]- All Rights Reserved Reading location - IP/workstation name: [email or web address]
[2019-04-05 17:23] LABS: ABSOLUTE BASOPHILS # (AUTO) 0.1 10^3/uL (0.0-0.2); ABSOLUTE EOSINOPHILS # (AUTO) 0.2 10^3/uL (0.0-0.6); ABSOLUTE LYMPHOCYTES (AUTO) 1.1 10^3/uL (0.5-4.7); ABSOLUTE MONOCYTES (AUTO) 0.4 10^3/uL (0.1-1.4); ABSOLUTE NEUT (AUTO) 5.5 10^3/uL (1.7-8.2); BASOPHILS % (AUTO) 0.8 % (0-2); EOSINOPHILS % (AUTO) 3.2 % (0-6); HEMATOCRIT 37.1 % (37.9-51.0); HEMOGLOBIN 12.6 g/dL (13.5-17.0); LYMPHOCYTES % (AUTO) 15.2 % (13-45); MEAN CORPUSCULAR HEMOGLOBIN 33.8 pg (27.0-33.4); MEAN CORPUSCULAR HGB CONC 34.1 g/dL (32.0-36.0); MEAN CORPUSCULAR VOLUME 99 fl (80-97); MONOCYTES % (AUTO) 5.9 % (3-13); PLATELET COUNT 106 10^3/uL (150-450); RED BLOOD COUNT 3.74 10^6/uL (4.35-5.55); RED CELL DISTRIBUTION WIDTH 14.1 % (11.5-14.0); SEGMENTED NEUTROPHILS % (AUTO) 74.9 % (42-78); TOTAL CELLS COUNTED % (AUTO) 100 %; WHITE BLOOD COUNT 7.3 10^3/uL (4.0-10.5)
[2019-04-05 17:34] LABS: ALANINE AMINOTRANSFERASE 21 U/L (21-72); ALBUMIN 4.2 g/dL (3.5-5.0); ALKALINE PHOSPHATASE 83 U/L (38-126); ANION GAP 9 (5-19); ASPARTATE AMINO TRANSFERASE 23 U/L (17-59); BILIRUBIN,DIRECT 0.4 mg/dL (0.0-0.4); BILIRUBIN,TOTAL 1.2 mg/dL (0.2-1.3); BLOOD UREA NITROGEN 41 mg/dL (7-20); CALCIUM 10.6 mg/dL (8.4-10.2); CARBON DIOXIDE 26 mmol/L (22-30); CHLORIDE 104 mmol/L (98-107); GLUCOSE 146 mg/dL (75-110); POTASSIUM 5.1 mmol/L (3.6-5.0); SODIUM 139.3 mmol/L (137-145)
[2019-04-05 17:46] LABS: TROPONIN I 0.013 ng/mL
--- NOTE | 2019-04-05 18:56 | ER Document Report ---
ED General - General Chief Complaint: Breathing Difficulty Stated Complaint: DIFFICULTY BREATHING Time Seen by Provider: 04/05/19 16:19 Mode of Arrival: Wheelchair Information source: Patient Notes: This is a 73-year-old man with a history of coronary artery disease, chronic kidney disease, CHF, insulin requiring diabetes who presents to the emergency room with progressively worsening shortness of breath, dyspnea on exertion for the past 3 days. Patient notes he has had a 45 pound weight gain in the last month. He denies any chest pain at this time. TRAVEL OUTSIDE OF THE [place] IN LAST 30 DAYS: No - HPI Onset: Last week Onset/Duration: Gradual Quality of pain: No pain Severity: None Pain Level: Denies Associated symptoms: Shortness of breath. denies: Chest pain, Fever Exacerbated by: Movement Relieved by: Remaining still Similar symptoms previously: Yes Recently seen / treated by doctor: Yes - Related Data Allergies/Adverse Reactions: No Known Allergies Allergy (Verified 02/19/19 11:21) Past Medical History - General Information source: Patient - Social History Smoking Status: Former Smoker Cigarette use (# per day): No Chew tobacco use (# tins/day): No Frequency of alcohol use: None Drug Abuse: None Lives with: Family Family History: Reviewed & Not Pertinent Patient has suicidal ideation: No Patient has homicidal ideation: No - Past Medical History Cardiac Medical History: Reports: Hx Congestive Heart Failure, Hx Coronary Artery Disease, Hx Hypercholesterolemia, Hx Hypertension Denies: Hx Atrial Fibrillation Pulmonary Medical History: Denies: Hx Asthma, Hx COPD, Hx Tuberculosis Neurological Medical History: Denies: Hx Seizures Endocrine Medical History: Reports: Hx Diabetes Mellitus Type 2. Denies: Hx Di abetes Mellitus Type 1, Hx Hyperthyroidism, Hx Hypothyroidism Renal/ Medical History: Denies: Hx Peritoneal Dialysis GI Medical History: Denies: Hx Cirrhosis, Hx Crohn's Disease, Hx Hepatitis, Hx Ulcerative Colitis Musculoskeletal Medical History: Reports Hx Arthritis, Denies Hx Gout Skin Medical History: Denies Hx Eczema, Denies Hx Psoriasis Infectious Medical History: Denies: Hx Hepatitis Past Surgical History: Reports: Hx Appendectomy, Hx Cardiac Catheterization, Hx Cardiac Surgery - pacemaker, quadruple bypass, Hx Coronary Artery Bypass Graft, Hx Internal Defibrillator, Hx Orthopedic Surgery - back, susan knees, Hx Pacemaker - AICD, Hx Thyroid Surgery - Immunizations Immunizations up to date: Yes Hx Diphtheria, Pertussis, Tetanus Vaccination: Yes Review of Systems - Review of Systems Constitutional: denies: Chills, Fever EENT: No symptoms reported Cardiovascular: See HPI Respiratory: No symptoms reported Gastrointestinal: No symptoms reported Genitourinary: No symptoms reported Male Genitourinary: No symptoms reported Musculoskeletal: No symptoms reported Skin: No symptoms reported Hematologic/Lymphatic: No symptoms reported Neurological/Psychological: No symptoms reported Physical Exam - Vital signs Vitals: Temp Pulse Resp BP Pulse Ox 98.6 F 70 18 139/62 H 95 04/05/19 16:18 04/05/19 16:18 04/05/19 16:18 04/05/19 16:18 04/05/19 16:18 Notes: Physical exam: GENERAL: She is alert and oriented x3, he does appear short of breath. Blood pressure is 158/83. His oxygen saturation is 95% on room air. HEAD: Atraumatic, normocephalic. EYES: Pupils equal round and reactive to light, extraocular movements intact, sclera anicteric, conjunctiva are normal. ENT: TMs normal, nares patent, oropharynx clear without exudates. Moist mucous membranes. NECK: Normal range of motion, supple without obvious mass or JVD. LUNGS: Crackles bilaterally HEART: Regular rate and rhythm without murmurs, rubs or gallops. ABDOMEN: Soft, normoactive bowel sounds. No tenderness to palpation. No guarding, no rebound. No masses appreciated. EXTREMITIES: Plus edema bilaterally NEUROLOGICAL: Cranial nerves II through XII grossly intact. Normal speech, moving all extremities. PSYCH: Normal mood, normal affect. SKIN: Warm, Dry, normal turgor, no rashes or lesions noted. Course - Vital Signs Vital signs: Temp Pulse Resp BP Pulse Ox 97.2 F 83 20 146/84 H 97 04/06/19 01:28 04/06/19 01:30 04/06/19 01:28 04/06/19 01:30 04/06/19 01:30 - Laboratory Result Diagrams: 04/05/19 17:00 04/05/19 17:00 Laboratory results interpreted by me: 04/05/19 04/05/19 04/05/19 17:00 17:00 17:00 RBC 3.74 L Hgb 12.6 L Hct 37.1 L MCV 99 H MCH 33.8 H RDW 14.1 H Plt Count 106 L Potassium 5.1 H BUN 41 H Creatinine 1.99 H Est GFR ( Amer) 40 L Est GFR (Non-Af Amer) 33 L Glucose 146 H Calcium 10.6 H NT-Pro-B Natriuret Pep 7330 H - Diagnostic Test Radiology reviewed: Image reviewed, Reports reviewed - Cardiomegaly and CHF - EKG Interpretation by Me Rhythm: Other - Paced rhythm at 68, 100% capture Discharge - Discharge Clinical Impression: Decompensated heart failure Condition: Serious Disposition: ADMITTED INPATIENT Admitting Provider: Edwin (Hospitalist) Unit Admitted: [facility]
[2019-04-05] MEDS ORDERED: NITROGLYCERIN 2% OINTMENT 1 GM PACKET TP ONE (21:05)
[2019-04-05] MEDS ORDERED: FUROSEMIDE INJ/PF 40 MG/4 ML SDV IV ONE (21:05)
[2019-04-05] MEDS ORDERED: GLUCAGON,HUMAN RECOMB 1 MG INJ IM PRN (21:28)
[2019-04-05] MEDS ORDERED: DEXTROSE 50%-WATER 25 GM/50 ML DISP.SYRIN IV PRN ×2 (21:28)
[2019-04-05] MEDS ORDERED: DEXTROSE 40% GEL 15 GM TUBE PO PRN ×2 (21:28)
[2019-04-05] MEDS ORDERED: ACETAMINOPHEN 325 MG TABLET PO PRN (21:28)
[2019-04-05] MEDS ORDERED: MAG HYDROX/AL HYDROX/SIMETH SUSP 30 ML UDCUP PO PRN (21:28)
[2019-04-05] MEDS: ATORVASTATIN CALCIUM 80 MG TABLET PO SCH (23:03)
[2019-04-05] MEDS: LISINOPRIL 5 MG TABLET PO SCH (23:03)
[2019-04-05] MEDS: POTASSIUM CHLORIDE 10 MEQ CAPSULE.ER PO SCH (23:03)
[2019-04-05] MEDS: FUROSEMIDE INJ/PF 40 MG/4 ML SDV IV SCH (23:03)
[2019-04-05] MEDS: HEPARIN SOD (PORCINE) 5,000 UNIT/ML 1 ML SYRINGE SUBCUT SCH (23:05)
[2019-04-05] MEDS: TRAZODONE HCL 50 MG TABLET PO SCH (23:06)
[2019-04-06] MEDS ORDERED: LACTULOSE SYRUP 20 GM/30 ML UDCUP PO ONE (04:37)
--- NOTE | 2019-04-06 04:53 | PDOC H&P ---
History of Present Illness Admission Date/PCP: 04/05/19 21:44 [facility] Patient complains of: Shortness of breath and weight gain History of Present Illness: YESIKA PARADA is a 73 year old male with a past medical history of stage III chronic kidney disease, diabetes, coronary artery disease status post four- vessel bypass grafting 1996 and congestive heart failure with an ejection fraction of 20% dual lead pacemaker. Patient presents with 3 days of exertional shortness of breath dyspnea, orthopnea associated with a 40 pound weight gain over the last 3 months. Patient denies chest pain, palpitations, change in diet or medications. Patient has tried taking additional Lasix without improvement. In the emergency room he is found to have chronic kidney disease at baseline, hyperkalemia, hypertension and shortness of breath improved with oxygen. He is referred to the hospitalist for admission. Past Medical History Cardiac Medical History: Reports: Congestive Heart Failure, Coronary Artery Disease, Hyperlipidema, Hypertension Denies: Atrial Fibrillation Pulmonary Medical History: Denies: Asthma, Chronic Obstructive Pulmonary Disease (COPD), Tuberculosis Neurological Medical History: Denies: Seizures Endocrine Medical History: Reports: Diabetes Mellitus Type 2 Denies: Diabetes Mellitus Type 1, Hyperthyroidism, Hypothyroidism GI Medical History: Denies: Cirrhosis, Crohn's Disease, Hepatitis, Ulcerative Colitis Musculoskeltal Medical History: Reports: Arthritis Denies: Gout Skin Medical History: Denies: Eczema, Psoriasis Psychiatric Medical History: Denies: Alcohol Dependency, Depression, Tobacco Dependency Hematology: Denies: Anemia, Bleeding Tendencies Past Surgical History Past Surgical History: Reports: Appendectomy, Cardiac Catheterization, Coronary Artery Bypass Graft, Internal Defibrillator, Orthopedic Surgery - back, susan knees, Pacemaker - AICD Social History Information Source: Patient Lives with: Family Smoking Status: Former Smoker Frequency of Alcohol Use: Rare Hx Recreational Drug Use: No Drugs: None Hx Prescription Drug Abuse: No - Advance Directive Resuscitation Status: Full Code Family History Family History: DM Parental Family History Reviewed: Yes Children Family History Reviewed: Yes Sibling(s) Family History Reviewed.: Yes Medication/Allergy Home Medications: Allopurinol [Zyloprim 100 mg Tablet] 100 mg PO DAILY 10/26/18 Aspirin [Aspirin 81 mg Chewable Tablet] 81 mg PO DAILY 10/26/18 Atorvastatin Calcium [Lipitor 80 mg Tablet] 80 mg PO QHS 10/26/18 Carvedilol 25 mg PO DAILY 10/26/18 Furosemide [Lasix] 80 mg PO DAILY 10/26/18 Insulin Glargine,Hum.rec.anlog [Lantus Insulin 100 Unit/mL Insulin Pen] 20 units SUBCUT QHS 10/26/18 Lisinopril [Prinivil] 5 mg PO BID 10/26/18 Multivitamin [Multivitamins] 1 tab PO DAILY 10/26/18 Pregabalin [Lyrica 25 mg Capsule] 25 mg PO BID 10/26/18 Trazodone HCl 25 mg PO QHS 10/26/18 Insulin Regular, Human [Novolin R] 6 unit INJ ACBRKFST 10/27/18 Insulin Regular, Human [Novolin R] 6 unit INJ ACLUNCH 10/27/18 Insulin Regular, Human [Novolin R] 10 unit INJ ACSUPPER 10/27/18 Isosorbide Mononitrate [Isosorbide Mononitrate ER] 120 mg PO DAILY 10/27/18 Allergies/Adverse Reactions: No Known Allergies Allergy (Verified 02/19/19 11:21) Review of Systems Constitutional: PRESENT: as per HPI, fatigue, weakness, weight gain. ABSENT: chills, fever(s), headache(s), weight loss Eyes: ABSENT: visual disturbances Ears: ABSENT: hearing changes Cardiovascular: PRESENT: dyspnea on exertion, edema, orthropnea. ABSENT: chest pain, palpitations Respiratory: PRESENT: as per HPI, dyspnea. ABSENT: cough, hemoptysis Gastrointestinal: ABSENT: abdominal pain, constipation, diarrhea, hematemesis, hematochezia, nausea, vomiting Genitourinary: ABSENT: dysuria, hematuria Musculoskeletal: ABSENT: joint swelling Integumentary: ABSENT: rash, wounds Neurological: ABSENT: abnormal gait, abnormal speech, confusion, dizziness, focal weakness, syncope Psychiatric: ABSENT: anxiety, depression, homidical ideation, suicidal ideation Endocrine: ABSENT: cold intolerance, heat intolerance, polydipsia, polyuria Hematologic/Lymphatic: ABSENT: easy bleeding, easy bruising Physical Exam Vital Signs: Temp Pulse Resp BP Pulse Ox 98.4 F 71 16 132/61 H 90 L 04/06/19 03:53 04/06/19 03:53 04/06/19 03:53 04/06/19 03:53 04/06/19 03:53 Intake & Output 04/04/19 04/05/19 04/06/19 11:59 11:59 11:59 Output Total 575 Balance -575 Weight 122.8 kg General appearance: PRESENT: cooperative, mild distress, morbidly obese Head exam: PRESENT: atraumatic, normocephalic Eye exam: PRESENT: conjunctiva pink, EOMI, PERRLA. ABSENT: scleral icterus Ear exam: PRESENT: normal external ear exam Mouth exam: PRESENT: moist, tongue midline Neck exam: PRESENT: JVD. ABSENT: carotid bruit, lymphadenopathy, tenderness, thyromegaly Respiratory exam: PRESENT: accessory muscle use, crackles, prolonged expiratory phas, symmetrical, tachypnea Cardiovascular exam: PRESENT: RRR. ABSENT: diastolic murmur, rubs, systolic murmur Pulses: PRESENT: normal dorsalis pedis pul Vascular exam: PRESENT: normal capillary refill GI/Abdominal exam: PRESENT: normal bowel sounds, soft. ABSENT: distended, guarding, mass, organolmegaly, rebound, tenderness Rectal exam: PRESENT: deferred Extremities exam: PRESENT: +2 edema Neurological exam: PRESENT: alert, awake, oriented to person, oriented to place, oriented to time, oriented to situation, CN II-XII grossly intact. ABSENT: motor sensory deficit Psychiatric exam: PRESENT: appropriate affect, normal mood. ABSENT: homicidal ideation, suicidal ideation Skin exam: PRESENT: dry, intact, warm. ABSENT: cyanosis, rash Results Laboratory Results: 04/05/19 17:00 04/05/19 17:00 04/05/19 04/05/19 04/05/19 17:00 17:00 17:00 WBC 7.3 RBC 3.74 L Hgb 12.6 L Hct 37.1 L MCV 99 H MCH 33.8 H MCHC 34.1 RDW 14.1 H Plt Count 106 L Seg Neutrophils % 74.9 Lymphocytes % 15.2 Monocytes % 5.9 Eosinophils % 3.2 Basophils % 0.8 Absolute Neutrophils 5.5 Absolute Lymphocytes 1.1 Absolute Monocytes 0.4 Absolute Eosinophils 0.2 Absolute Basophils 0.1 Sodium 139.3 Potassium 5.1 H Chloride 104 Carbon Dioxide 26 Anion Gap 9 BUN 41 H Creatinine 1.99 H Est GFR ( Amer) 40 L Est GFR (Non-Af Amer) 33 L Glucose 146 H Calcium 10.6 H Magnesium 1.8 Total Bilirubin 1.2 AST 23 ALT 21 Alkaline Phosphatase 83 Total Protein 7.0 Albumin 4.2 TSH 04/05/19 17:00 WBC RBC Hgb Hct MCV MCH MCHC RDW Plt Count Seg Neutrophils % Lymphocytes % Monocytes % Eosinophils % Basophils % Absolute Neutrophils Absolute Lymphocytes Absolute Monocytes Absolute Eosinophils Absolute Basophils Sodium Potassium Chloride Carbon Dioxide Anion Gap BUN Creatinine Est GFR ( Amer) Est GFR (Non-Af Amer) Glucose Calcium Magnesium Total Bilirubin AST ALT Alkaline Phosphatase Total Protein Albumin TSH 0.97 04/05/19 04/05/19 17:00 23:01 Troponin I 0.013 0.017 NT-Pro-B Natriuret Pep 7330 H Impressions: Chest X-Ray 04/05/19 16:24 IMPRESSION: CARDIAC ENLARGEMENT. VASCULAR CONGESTION. Assessment and Plan - Diagnosis (1) Acute on chronic congestive heart failure Qualifiers: Heart failure type: unspecified Qualified Code(s): I50.9 - Heart failure, unspecified Is this a current diagnosis for this admission?: Yes Plan: CHF care set, unclear cause for decompensation, possible underlying sleep apnea or pulmonary hypertension, last echo 6 months ago unable to calculate RVSP. Optimize fluid status, follow-up chemistry (2) CKD (chronic kidney disease) stage 3, GFR 30-59 ml/min Is this a current diagnosis for this admission?: Yes Plan: At baseline anticipate some creatinine elevation with diuresis. Follow-up chemistry (3) Diabetes mellitus type 2 in obese Is this a current diagnosis for this admission?: Yes Plan: Modified outpatient regiment of Lantus and scheduled Humalog with meals plus Hu malog sliding scale QaC (4) HTN (hypertension) Qualifiers: Hypertension type: essential hypertension Qualified Code(s): I10 - Ess ential (primary) hypertension Is this a current diagnosis for this admission?: Yes Plan: Lasix, nitrate and hydralazine as needed - Time Time Spent with patient: 35 or more minutes - Inpatient Certification Medical Necessity: Need Close Monitoring Due to Risk of Patient Decompensation
[2019-04-06 05:17] LABS: ABSOLUTE BASOPHILS # (AUTO) 0.1 10^3/uL (0.0-0.2); ABSOLUTE EOSINOPHILS # (AUTO) 0.2 10^3/uL (0.0-0.6); ABSOLUTE LYMPHOCYTES (AUTO) 1.5 10^3/uL (0.5-4.7); ABSOLUTE MONOCYTES (AUTO) 0.7 10^3/uL (0.1-1.4); ABSOLUTE NEUT (AUTO) 5.7 10^3/uL (1.7-8.2); BASOPHILS % (AUTO) 1.2 % (0-2); EOSINOPHILS % (AUTO) 2.5 % (0-6); HEMATOCRIT 36.5 % (37.9-51.0); HEMOGLOBIN 12.5 g/dL (13.5-17.0); LYMPHOCYTES % (AUTO) 18.1 % (13-45); MEAN CORPUSCULAR HEMOGLOBIN 33.6 pg (27.0-33.4); MEAN CORPUSCULAR HGB CONC 34.2 g/dL (32.0-36.0); MEAN CORPUSCULAR VOLUME 99 fl (80-97); MONOCYTES % (AUTO) 8.5 % (3-13); PLATELET COUNT 155 10^3/uL (150-450); RED CELL DISTRIBUTION WIDTH 14.2 % (11.5-14.0); SEGMENTED NEUTROPHILS % (AUTO) 69.7 % (42-78); TOTAL CELLS COUNTED % (AUTO) 100 %; WHITE BLOOD COUNT 8.1 10^3/uL (4.0-10.5)
[2019-04-06 05:25] LABS: ANION GAP 9 (5-19); BLOOD UREA NITROGEN 39 mg/dL (7-20); CALCIUM 10.9 mg/dL (8.4-10.2); CARBON DIOXIDE 27 mmol/L (22-30); CHLORIDE 106 mmol/L (98-107); CHOLESTEROL 197.49 mg/dL (0-200); GLUCOSE 150 mg/dL (75-110); POTASSIUM 4.6 mmol/L (3.6-5.0); SODIUM 141.7 mmol/L (137-145); TRIGLYCERIDES 128 mg/dL (<150)
[2019-04-06 05:36] LABS: DIRECT LDL 133 mg/dL (<100)
[2019-04-06] MEDS: HEPARIN SOD (PORCINE) 5,000 UNIT/ML 1 ML SYRINGE SUBCUT SCH ×3 (05:41→22:10)
--- NOTE | 2019-04-06 06:58 | ADVANCED CARE ---
- Diagnosis (1) Acute on chronic congestive heart failure Diagnosis Current: Yes (2) CKD (chronic kidney disease) stage 3, GFR 30-59 ml/min Diagnosis Current: Yes (3) Diabetes mellitus type 2 in obese Diagnosis Current: Yes Attendance: Patient Resuscitation Status: Full Code Discussion: Patient urged to choose healthcare proxy, patient indicates Yifan Mandel Time Spent: 17 minutes spent
--- NOTE | 2019-04-06 07:46 | EKG REPORT ---
SEVERITY:- ABNORMAL ECG - ATRIAL-SENSED VENTRICULAR-PACED RHYTHM PVC : Confirmed by: Yobany Weiss MD 06-Apr-2019 07:45:42
[2019-04-06] MEDS: INSULIN LISPRO 100 UNIT/ML 3 ML VIAL SUBCUT SCH ×6 (07:55→17:11)
[2019-04-06] MEDS: CARVEDILOL 12.5 MG TABLET PO SCH (10:56)
[2019-04-06] MEDS: LISINOPRIL 5 MG TABLET PO SCH ×2 (10:56→22:18)
[2019-04-06] MEDS: ASPIRIN 81 MG TABLET, CHEWABLE PO SCH (10:57)
[2019-04-06] MEDS: FUROSEMIDE INJ/PF 40 MG/4 ML SDV IV SCH ×2 (10:57→22:19)
[2019-04-06] MEDS: POTASSIUM CHLORIDE 10 MEQ CAPSULE.ER PO SCH ×2 (10:57→22:19)
[2019-04-06] MEDS: ISOSORBIDE MONONITRATE 60 MG TAB.ER.24H PO SCH (10:57)
[2019-04-06] MEDS: DOCUSATE SODIUM 100 MG CAPSULE PO SCH (10:59)
--- NOTE | 2019-04-06 13:10 | PDOC PROGRESS REPORT ---
Subjective Progress Note for:: 04/06/19 Subjective:: This is a very pleasant 73 years old male patient with past medical history of congestive heart failure, coronary artery disease status post quadruple bypass in 1996, diabetes mellitus, hypertension, stage III CKD and obesity, presents with chief complaint 3 days history of shortness of breath, exertional dyspnea, orthopnea and unintentional weight gain of about 40 pound over the last 3 months. His echocardiogram which was done in October 2080 reported as ejection fraction less than 20% and left ventricular function severely reduced with severe global hypokinesis. His blood work shows markedly elevated BNP of 7330 and mild hyperkalemia with potassium 5.1. Is being managed with IV Lasix, carvedilol and lisinopril. This morning I see him propped up to him. Awake alert oriented. He reports this relative improvement in his shortness of breath. Reason For Visit: HEART FAILURE Physical Exam Vital Signs: Temp Pulse Resp BP Pulse Ox 98.7 F 72 18 144/58 H 94 04/06/19 10:58 04/06/19 10:58 04/06/19 10:58 04/06/19 10:58 04/06/19 10:58 Intake & Output 04/05/19 04/06/19 04/07/19 06:59 06:59 06:59 Intake Total 250 Output Total 1550 Balance -1300 Weight 122.8 kg General appearance: PRESENT: mild distress Head exam: PRESENT: atraumatic Eye exam: PRESENT: conjunctiva pink Neck exam: PRESENT: JVD Respiratory exam: PRESENT: clear to auscultation susan. ABSENT: rales, rhonchi, wheezes Cardiovascular exam: PRESENT: RRR. ABSENT: diastolic murmur, rubs, systolic murmur GI/Abdominal exam: PRESENT: normal bowel sounds, soft. ABSENT: distended, guarding, mass, organolmegaly, rebound, tenderness Extremities exam: PRESENT: +2 edema Neurological exam: PRESENT: alert, awake, oriented to person, oriented to place, oriented to time, oriented to situation Results Laboratory Results: 04/06/19 04:53 04/06/19 04:53 04/05/19 04/05/19 04/05/19 17:00 17:00 17:00 WBC 7.3 RBC 3.74 L Hgb 12.6 L Hct 37.1 L MCV 99 H MCH 33.8 H MCHC 34.1 RDW 14.1 H Plt Count 106 L Seg Neutrophils % 74.9 Lymphocytes % 15.2 Monocytes % 5.9 Eosinophils % 3.2 Basophils % 0.8 Absolute Neutrophils 5.5 Absolute Lymphocytes 1.1 Absolute Monocytes 0.4 Absolute Eosinophils 0.2 Absolute Basophils 0.1 Sodium 139.3 Potassium 5.1 H Chloride 104 Carbon Dioxide 26 Anion Gap 9 BUN 41 H Creatinine 1.99 H Est GFR ( Amer) 40 L Est GFR (Non-Af Amer) 33 L Glucose 146 H Calcium 10.6 H Magnesium 1.8 Total Bilirubin 1.2 AST 23 ALT 21 Alkaline Phosphatase 83 Total Protein 7.0 Albumin 4.2 Triglycerides Cholesterol LDL Cholesterol Direct VLDL Cholesterol HDL Cholesterol TSH 04/05/19 04/06/19 04/06/19 17:00 04:53 04:53 WBC 8.1 RBC 3.70 L Hgb 12.5 L Hct 36.5 L MCV 99 H MCH 33.6 H MCHC 34.2 RDW 14.2 H Plt Count 155 Seg Neutrophils % 69.7 Lymphocytes % 18.1 Monocytes % 8.5 Eosinophils % 2.5 Basophils % 1.2 Absolute Neutrophils 5.7 Absolute Lymphocytes 1.5 Absolute Monocytes 0.7 Absolute Eosinophils 0.2 Absolute Basophils 0.1 Sodium 141.7 Potassium 4.6 Chloride 106 Carbon Dioxide 27 Anion Gap 9 BUN 39 H Creatinine 2.12 H Est GFR ( Amer) 37 L Est GFR (Non-Af Amer) 31 L Glucose 150 H Calcium 10.9 H Magnesium Total Bilirubin AST ALT Alkaline Phosphatase Total Protein Albumin Triglycerides 128 Cholesterol 197.49 LDL Cholesterol Direct 133 H VLDL Cholesterol 26.0 HDL Cholesterol 27 L TSH 0.97 04/05/19 04/05/19 04/06/19 17:00 23:01 04:53 Troponin I 0.013 0.017 0.026 NT-Pro-B Natriuret Pep 7330 H 04/06/19 11:27 Troponin I 0.017 NT-Pro-B Natriuret Pep Impressions: Chest X-Ray 04/05/19 16:24 IMPRESSION: CARDIAC ENLARGEMENT. VASCULAR CONGESTION. Assessment and Plan - Diagnosis (1) Acute on chronic systolic congestive heart failure, NYHA class 2 Is this a current diagnosis for this admission?: Yes Plan: I will continue Lasix carvedilol lisinopril and supplemental oxygen. (2) CAD S/P CABG Is this a current diagnosis for this admission?: Yes Plan: Currently no anginal symptoms. Continue cardioprotective medications. (3) Type 2 diabetes mellitus Is this a current diagnosis for this admission?: Yes Plan: Continue current regimen (4) Stage III chronic kidney disease Is this a current diagnosis for this admission?: Yes Plan: Stable patient needs follow-up with transit operator as outpatient. (5) Obesity (BMI 30-39.9) Is this a current diagnosis for this admission?: Yes Plan: Lifestyle modification advised. (6) Hypertension Qualifiers: Hypertension type: essential hypertension Qualified Code(s): I10 - Essential (primary) hypertension Is this a current diagnosis for this admission?: Yes Plan: Continue current regimen.
[2019-04-06] MEDS: TRAZODONE HCL 50 MG TABLET PO SCH (22:18)
[2019-04-06] MEDS: ATORVASTATIN CALCIUM 80 MG TABLET PO SCH (22:18)
[2019-04-06] MEDS: INSULIN GLARGINE,HUM.REC.ANLOG 1,000 UNIT/10 ML VIAL SUBCUT SCH (22:21)
[2019-04-07] MEDS: HEPARIN SOD (PORCINE) 5,000 UNIT/ML 1 ML SYRINGE SUBCUT SCH ×3 (05:07→21:17)
[2019-04-07] MEDS: INSULIN LISPRO 100 UNIT/ML 3 ML VIAL SUBCUT SCH ×6 (08:28→16:51)
[2019-04-07] MEDS ORDERED: (PENDING PHARMACY ID) (Multivitamin [Multivitamins] 1 TAB) PO SCH (10:00)
[2019-04-07] MEDS: LISINOPRIL 5 MG TABLET PO SCH ×2 (10:22→21:16)
[2019-04-07] MEDS: CARVEDILOL 12.5 MG TABLET PO SCH (10:22)
[2019-04-07] MEDS: ASPIRIN 81 MG TABLET, CHEWABLE PO SCH (10:22)
[2019-04-07] MEDS: ISOSORBIDE MONONITRATE 60 MG TAB.ER.24H PO SCH (10:22)
[2019-04-07] MEDS: ALLOPURINOL 100 MG TABLET PO SCH (10:22)
[2019-04-07] MEDS: DOCUSATE SODIUM 100 MG CAPSULE PO SCH (10:23)
[2019-04-07] MEDS: MULTIVITAMIN TABLET PO SCH (10:23)
[2019-04-07] MEDS: FUROSEMIDE INJ/PF 40 MG/4 ML SDV IV SCH ×2 (10:23→21:17)
[2019-04-07] MEDS: PREGABALIN 25 MG CAPSULE PO SCH ×2 (10:30→21:17)
--- NOTE | 2019-04-07 15:12 | PDOC PROGRESS REPORT ---
Subjective Progress Note for:: 04/07/19 Subjective:: Patient seen and examined while his sitting up in bed. His shortness of breath has been improving gradually. No new complaint. Reason For Visit: HEART FAILURE Physical Exam Vital Signs: Temp Pulse Resp BP Pulse Ox 97.8 F 63 16 121/65 95 04/07/19 11:24 04/07/19 11:24 04/07/19 11:24 04/07/19 11:24 04/07/19 11:24 Intake & Output 04/06/19 04/07/19 04/08/19 06:59 06:59 06:59 Intake Total 250 970 337 Output Total 1550 1200 625 Balance -1300 -230 -288 Weight 122.8 kg 119.6 kg Neck exam: ABSENT: carotid bruit, JVD, lymphadenopathy, thyromegaly Respiratory exam: PRESENT: decreased breath sounds Cardiovascular exam: PRESENT: RRR. ABSENT: diastolic murmur, rubs, systolic murmur GI/Abdominal exam: PRESENT: normal bowel sounds, soft. ABSENT: distended, guarding, mass, organolmegaly, rebound, tenderness Extremities exam: PRESENT: +1 edema Neurological exam: PRESENT: alert, awake, oriented to person, oriented to time, oriented to situation Results Laboratory Results: 04/06/19 04:53 04/06/19 04:53 04/05/19 04/05/19 04/06/19 17:00 23:01 04:53 Troponin I 0.013 0.017 0.026 NT-Pro-B Natriuret Pep 7330 H 04/06/19 11:27 Troponin I 0.017 NT-Pro-B Natriuret Pep Impressions: Chest X-Ray 04/05/19 16:24 IMPRESSION: CARDIAC ENLARGEMENT. VASCULAR CONGESTION. Assessment and Plan - Diagnosis (1) Acute on chronic systolic congestive heart failure, NYHA class 2 Is this a current diagnosis for this admission?: Yes Plan: I will continue Lasix carvedilol lisinopril and supplemental oxygen. (2) CAD S/P CABG Is this a current diagnosis for this admission?: Yes Plan: Currently no anginal symptoms. Continue cardioprotective medications. (3) Type 2 diabetes mellitus Is this a current diagnosis for this admission?: Yes Plan: Continue current regimen (4) Stage III chronic kidney disease Is this a current diagnosis for this admission?: Yes Plan: Stable patient needs follow-up with air traffic controller center as outpatient. (5) Obesity (BMI 30-39.9) Is this a current diagnosis for this admission?: Yes Plan: Lifestyle modification advised. (6) Hypertension Qualifiers: Hypertension type: essential hypertension Qualified Code(s): I10 - Es sential (primary) hypertension Is this a current diagnosis for this admission?: Yes Plan: Continue current regimen.
[2019-04-07] MEDS: TRAZODONE HCL 50 MG TABLET PO SCH (21:17)
[2019-04-07] MEDS: ATORVASTATIN CALCIUM 80 MG TABLET PO SCH (21:17)
[2019-04-07] MEDS: INSULIN GLARGINE,HUM.REC.ANLOG 1,000 UNIT/10 ML VIAL SUBCUT SCH (22:32)
[2019-04-08] MEDS: HEPARIN SOD (PORCINE) 5,000 UNIT/ML 1 ML SYRINGE SUBCUT SCH ×3 (05:04→21:34)
[2019-04-08] MEDS: INSULIN LISPRO 100 UNIT/ML 3 ML VIAL SUBCUT SCH ×6 (07:58→17:09)
[2019-04-08] MEDS: PREGABALIN 25 MG CAPSULE PO SCH ×2 (10:27→21:33)
[2019-04-08] MEDS: MULTIVITAMIN TABLET PO SCH (10:27)
[2019-04-08] MEDS: ALLOPURINOL 100 MG TABLET PO SCH (10:27)
[2019-04-08] MEDS: LISINOPRIL 5 MG TABLET PO SCH ×2 (10:27→21:33)
[2019-04-08] MEDS: ASPIRIN 81 MG TABLET, CHEWABLE PO SCH (10:27)
[2019-04-08] MEDS: FUROSEMIDE INJ/PF 40 MG/4 ML SDV IV SCH ×2 (10:27→21:34)
[2019-04-08] MEDS: ISOSORBIDE MONONITRATE 60 MG TAB.ER.24H PO SCH (10:27)
[2019-04-08] MEDS: CARVEDILOL 12.5 MG TABLET PO SCH (10:27)
[2019-04-08] MEDS: DOCUSATE SODIUM 100 MG CAPSULE PO SCH (10:28)
[2019-04-08] MEDS: CIPROFLOXACIN HCL 0.3% OPH SOLN 2.5 ML OU SCH ×3 (13:11→23:20)
--- NOTE | 2019-04-08 14:08 | PDOC PROGRESS REPORT ---
Subjective Progress Note for:: 04/08/19 Subjective:: I seen patient sitting up on recliner. He is awake alert oriented. He complains of weeping and foreign body sensation of the right eye. She has some kind of conjunctivitis. I started him on Cipro eyedrop. Reason For Visit: HEART FAILURE Physical Exam Vital Signs: Temp Pulse Resp BP Pulse Ox 97.6 F 64 16 109/56 L 97 04/08/19 12:01 04/08/19 12:01 04/08/19 12:01 04/08/19 12:01 04/08/19 12:01 Intake & Output 04/07/19 04/08/19 04/09/19 06:59 06:59 06:59 Intake Total 970 999 Output Total 1200 5 Balance -230 -1026 Weight 119.7 kg General appearance: PRESENT: no acute distress Eye exam: PRESENT: conjunctiva pink - Right eye Neck exam: ABSENT: carotid bruit, JVD, lymphadenopathy, thyromegaly Respiratory exam: PRESENT: clear to auscultation susan. ABSENT: rales, rhonchi, wheezes Cardiovascular exam: PRESENT: RRR. ABSENT: diastolic murmur, rubs, systolic murmur GI/Abdominal exam: PRESENT: normal bowel sounds, soft. ABSENT: distended, guarding, mass, organolmegaly, rebound, tenderness Neurological exam: PRESENT: alert, awake, oriented to person, oriented to place, oriented to time, oriented to situation Results Laboratory Results: 04/06/19 04:53 04/06/19 04:53 04/05/19 04/05/19 04/06/19 17:00 23:01 04:53 Troponin I 0.013 0.017 0.026 NT-Pro-B Natriuret Pep 7330 H 04/06/19 11:27 Troponin I 0.017 NT-Pro-B Natriuret Pep Impressions: Chest X-Ray 04/05/19 16:24 IMPRESSION: CARDIAC ENLARGEMENT. VASCULAR CONGESTION. Assessment and Plan - Diagnosis (1) Conjunctivitis, right eye Is this a current diagnosis for this admission?: Yes Plan: been started on Cipro (2) Acute on chronic systolic congestive heart failure, NYHA class 2 Is this a current diagnosis for this admission?: Yes Plan: I will continue Lasix carvedilol lisinopril and supplemental oxygen. (3) CAD S/P CABG Is this a current diagnosis for this admission?: Yes Plan: Currently no anginal symptoms. Continue cardioprotective medications. (4) Type 2 diabetes mellitus Is this a current diagnosis for this admission?: Yes Plan: Continue current regimen (5) Stage III chronic kidney disease Is this a current diagnosis for this admission?: Yes Plan: Stable patient needs follow-up with new client banking services clerk as outpatient. (6) Obesity (BMI 30-39.9) Is this a current diagnosis for this admission?: Yes Plan: Lifestyle modification advised. (7) Hypertension Qualifiers: Hypertension type: essential hypertension Qualified Code(s): I10 - Essential (primary) hypertension Is this a current diagnosis for this admission?: Yes Plan: Continue current regimen.
[2019-04-08] MEDS: TRAZODONE HCL 50 MG TABLET PO SCH (21:33)
[2019-04-08] MEDS: ATORVASTATIN CALCIUM 80 MG TABLET PO SCH (21:33)
[2019-04-08] MEDS: INSULIN GLARGINE,HUM.REC.ANLOG 1,000 UNIT/10 ML VIAL SUBCUT SCH (21:34)
[2019-04-09] MEDS: HEPARIN SOD (PORCINE) 5,000 UNIT/ML 1 ML SYRINGE SUBCUT SCH (05:45)
[2019-04-09] MEDS: CIPROFLOXACIN HCL 0.3% OPH SOLN 2.5 ML OU SCH (05:47)
[2019-04-09] MEDS: INSULIN LISPRO 100 UNIT/ML 3 ML VIAL SUBCUT SCH ×2 (07:21→07:22)
[2019-04-09 09:06] VITALS: BP 147/87
--- NOTE | 2019-04-10 11:41 | PDOC DISCHARGE SUMMARY ---
General - Admit/Disc Date/PCP Admission Date/Primary Care Provider: 04/05/19 21:[facility] Discharge Date: 04/09/19 - Discharge Diagnosis (1) Conjunctivitis, right eye Is this a current diagnosis for this admission?: Yes (2) Acute on chronic systolic congestive heart failure, NYHA class 2 Is this a current diagnosis for this admission?: Yes (3) CAD S/P CABG Is this a current diagnosis for this admission?: Yes (4) Type 2 diabetes mellitus Is this a current diagnosis for this admission?: Yes (5) Stage III chronic kidney disease Is this a current diagnosis for this admission?: Yes (6) Obesity (BMI 30-39.9) Is this a current diagnosis for this admission?: Yes (7) Hypertension Is this a current diagnosis for this admission?: Yes - Additional Information Resuscitation Status: Full Code Discharge Diet: Cardiac, Diabetic Discharge Activity: Activity As Tolerated, Balance Activity w/Rest, Weigh Daily Prescriptions: Digoxin 125 mcg PO DAILY #30 tablet Spironolactone [Aldactone 25 mg Tablet] 25 mg PO DAILY #30 tablet Home Medications: Allopurinol [Zyloprim 100 mg Tablet] 100 mg PO DAILY 10/26/18 Aspirin [Aspirin 81 mg Chewable Tablet] 81 mg PO DAILY 10/26/18 Atorvastatin Calcium [Lipitor 80 mg Tablet] 80 mg PO QHS 10/26/18 Carvedilol 25 mg PO DAILY 10/26/18 Furosemide [Lasix] 80 mg PO DAILY 10/26/18 Insulin Glargine,Hum.rec.anlog [Lantus Insulin 100 Unit/mL Insulin Pen] 20 units SUBCUT QHS 10/26/18 Lisinopril [Prinivil] 5 mg PO BID 10/26/18 Multivitamin [Multivitamins] 1 tab PO DAILY 10/26/18 Pregabalin [Lyrica 25 mg Capsule] 25 mg PO Q12 10/26/18 Trazodone HCl 25 mg PO QHS 10/26/18 Insulin Regular, Human [Novolin R] 6 unit INJ BIDACBL 10/27/18 Insulin Regular, Human [Novolin R] 10 unit INJ ACSUPPER 10/27/18 Isosorbide Mononitrate [Isosorbide Mononitrate ER] 120 mg PO DAILY 10/27/18 Digoxin 125 mcg PO DAILY #30 tablet 04/09/19 Spironolactone [Aldactone 25 mg Tablet] 25 mg PO DAILY #30 tablet 04/09/19 History of Present Illness History of Present Illness: YESIKA PARADA is a 73 year old male with a past medical history of stage III chronic kidney disease, diabetes, coronary artery disease status post four- vessel bypass grafting 1996 and congestive heart failure with an ejection fraction of 20% dual lead pacemaker. Patient presents with 3 days of exertional shortness of breath dyspnea, orthopnea associated with a 40 pound weight gain over the last 3 months. Patient denies chest pain, palpitations, change in diet or medications. Patient has tried taking additional Lasix without improvement. In the emergency room he is found to have chronic kidney disease at baseline, hyperkalemia, hypertension and shortness of breath improved with oxygen. He is referred to the hospitalist for admission. Hospital Course Hospital Course: This is a very pleasant 73 years old male patient with past medical history of congestive heart failure, coronary artery disease status post juany druple bypass in 1996, diabetes mellitus, hypertension, stage III CKD and obesity, presents with chief complaint 3 days history of shortness of breath, exertional dyspnea, orthopnea and unintentional weight gain of about 40 pound over the last 3 months. His echocardiogram which was done in October 2080 reported as ejection fraction less than 20% and left ventricular function severely reduced with severe global hypokinesis. His blood work shows markedly elevated BNP of 7330 and mild hyperkalemia with potassium 5.1. Is being managed with IV Lasix, carvedilol and lisinopril. This morning I see him propped up to him. Awake alert oriented. Patient reports that his shortness of breath has subsided now is at his baseline. Patient tells me he has enough medication he does not need any refill. So I will continue all his medication. And I will add Aldactone 25 mg p.o. daily and digoxin 0.125 mg p.o. daily. And follow-up in 1 week with his primary enterprise account manager. Physical Exam Vital Signs: Temp Pulse Resp BP Pulse Ox 97.8 F 62 20 117/55 L 90 L 04/09/19 03:25 04/09/19 07:00 04/09/19 03:25 04/09/19 03:25 04/09/19 03:25 Intake & Output 06/06/1904/09/19 04/10/19 06:59 06:59 06:59 Intake Total 999 1170 Output Total 2024 1385 Balance -1026 -215 Weight 119.7 kg 119.6 kg General appearance: PRESENT: no acute distress Head exam: PRESENT: atraumatic Eye exam: PRESENT: conjunctival injection Mouth exam: PRESENT: moist Neck exam: ABSENT: carotid bruit, JVD, lymphadenopathy, thyromegaly Respiratory exam: PRESENT: clear to auscultation susan. ABSENT: rales, rhonchi, wheezes Cardiovascular exam: PRESENT: RRR. ABSENT: diastolic murmur, rubs, systolic murmur GI/Abdominal exam: PRESENT: normal bowel sounds, soft. ABSENT: distended, guarding, mass, organolmegaly, rebound, tenderness Neurological exam: PRESENT: alert, awake, oriented to person, oriented to place, oriented to time, oriented to situation Results Laboratory Results: 04/06/19 04:53 04/06/19 04:53 04/05/19 04/05/19 04/06/19 17:00 23:01 04:53 Troponin I 0.013 0.017 0.026 NT-Pro-B Natriuret Pep 7330 H 04/06/19 11:27 Troponin I 0.017 NT-Pro-B Natriuret Pep Impressions: Chest X-Ray 04/05/19 16:24 IMPRESSION: CARDIAC ENLARGEMENT. VASCULAR CONGESTION. Qualifiers - * PATIENT BEING DISCHARGED WITH ANY OF THE FOLLOWING DIAGNOSIS: No Acute Heart Failure - Is this a Heart Failure Patient?: Yes Documentation of LVEF assessment?: Yes LVEF < 40%?: Yes-if yes answer questions a through e a) Discharged on ACEI?: Yes b) Discharges on ARB?: Yes c) Discharged on ARNI?: No-Document Contraindications Reason(s) not discharged on ARNI: ACEI use within the prior 36 hours d) Discharged on evidence-based Beta karoline(carvedilol, sustained release metoprolol succinate, or bisoprolol)?: Yes e) For LVEF <35%, discharged on Aldosterone antagonist?: Yes 3. Anticoagulant therapy for permanect/persistent/paraoxysmal Afib or Aflutter: N/A
== END 2019-04-09 09:35 | disposition home or self-care (01) | DRG 291 ==
LOC: ER 16:05 → EH 21:44 → 3N 04-06 01:27
PROVIDERS: ADMIT Internal Medicine; ATTEND Internal Medicine
DX: I13.0 Hypertensive heart and chronic kidney disease with heart failure and stage 1 through stage 4 chronic kidney disease, or unspecified chronic kidney disease (principal); I50.23 Acute on chronic systolic (congestive) heart failure; N18.3 Chronic kidney disease, stage 3 (moderate); E11.22 Type 2 diabetes mellitus with diabetic chronic kidney disease; I25.10 Atherosclerotic heart disease of native coronary artery without angina pectoris; E87.5 Hyperkalemia; H10.9 Unspecified conjunctivitis; Z79.82 Long term (current) use of aspirin; Z79.4 Long term (current) use of insulin; Z79.899 Other long term (current) drug therapy; Z95.0 Presence of cardiac pacemaker
CPT/HCPCS: 36415; 71046; 80048; 80053; 80061; 82962; 83036; 83735; 83880; 84443; 84484; 85025; 93005; 93010; 96374; 99285; J1815; J1940; J3490

== ENCOUNTER 2019-08-23 12:48 | Inpatient (IN) | payer OTHER, MEDICARE ==
[2019-08-23] MEDS ORDERED: ASPIRIN 81 MG TABLET, CHEWABLE PO ONE (13:10)
--- NOTE | 2019-08-23 13:12 | ER Document Report ---
ED Medical Screen (RME) - General Chief Complaint: Shortness Of Breath Stated Complaint: SHORTNESS OF BREATH,CHEST PAIN Time Seen by Provider: 08/23/19 13:08 Primary Care Provider: CHELSEA,ANA [Primary Care Provider] - Follow up as needed Mode of Arrival: Wheelchair Information source: Patient Notes: Patient presents complaining of chest pain shortness of breath for the past 5 days. Patient reports chest pain as a heaviness. Patient reports congestion and mild cough. No nausea or vomiting. Patient reports a 10 pound weight gain over the past several days. Patient with a history of diabetes, congestive heart failure and CKD. I have greeted and performed a rapid initial assessment of this patient. A comprehensive ED assessment and evaluation of the patient, analysis of test results and completion of the medical decision making process will be conducted by additional ED providers. TRAVEL OUTSIDE OF THE [place] IN LAST 30 DAYS: No - Related Data Allergies/Adverse Reactions: No Known Allergies Allergy (Verified 08/23/19 13:05) Past Medical History - Social History Chew tobacco use (# tins/day): No Frequency of alcohol use: Occasional Drug Abuse: None - Past Medical History Cardiac Medical History: Reports: Hx Congestive Heart Failure, Hx Coronary Artery Disease, Hx Hypercholesterolemia, Hx Hypertension Denies: Hx Atrial Fibrillation Pulmonary Medical History: Denies: Hx Asthma, Hx COPD, Hx Tuberculosis Neurological Medical History: Denies: Hx Seizures Endocrine Medical History: Reports: Hx Diabetes Mellitus Type 2. Denies: Hx Diabetes Mellitus Type 1, Hx Hyperthyroidism, Hx Hypothyroidism Renal/ Medical History: Denies: Hx Peritoneal Dialysis GI Medical History: Denies: Hx Cirrhosis, Hx Crohn's Disease, Hx Hepatitis, Hx Ulcerative Colitis Musculoskeltal Medical History: Reports Hx Arthritis, Denies Hx Gout Skin Medical History: Denies Hx Eczema, Denies Hx Psoriasis Psychiatric Medical History: Denies: Hx Depression Infectious Medical History: Denies: Hx Hepatitis Past Surgical History: Reports: Hx Appendectomy, Hx Cardiac Catheterization, Hx Cardiac Surgery - pacemaker, quadruple bypass, Hx Coronary Artery Bypass Graft, Hx Internal Defibrillator, Hx Orthopedic Surgery - back, susan knees, Hx Pacemaker - AICD, Hx Thyroid Surgery - Immunizations Immunizations up to date: Yes Hx Diphtheria, Pertussis, Tetanus Vaccination: Yes Physical Exam - Vital signs Vitals: Temp Pulse Resp BP Pulse Ox 98.0 F 62 20 131/87 H 92 08/23/19 13:05 08/23/19 13:05 08/23/19 13:05 08/23/19 13:05 08/23/19 13:05 - General General appearance: Alert Notes: Pale, respirations unlabored - Cardiovascular Rhythm: Regular Heart sounds: S1 appreciated, S2 appreciated Course - Vital Signs Vital signs: Temp Pulse Resp BP Pulse Ox 98.0 F 62 20 131/87 H 92 08/23/19 13:05 08/23/19 13:05 08/23/19 13:05 08/23/19 13:05 08/23/19 13:05 Doctor's Discharge - Discharge [facility]errals: [facility] [[facility] - Follow up as needed
--- NOTE | 2019-08-23 14:09 | RADIOLOGY REPORT (SQ) ---
EXAM DESCRIPTION: CHEST 2 VIEWS COMPLETED DATE/TIME: 08/23/2019 2:00 pm REASON FOR STUDY: cp, kajal COMPARISON: 04/05/2019 EXAM PARAMETERS: NUMBER OF VIEWS: two views TECHNIQUE: Digital Frontal and Lateral radiographic views of the chest acquired. RADIATION DOSE: NA LIMITATIONS: none FINDINGS: LUNGS AND PLEURA: Persistent blunting of the costophrenic angles. Persistent eventration of the right hemidiaphragm. No consolidation. MEDIASTINUM AND HILAR STRUCTURES: No masses or contour abnormalities. HEART AND VASCULAR STRUCTURES: Heart remains enlarged with central vascular prominence. BONES: No acute findings. HARDWARE: Unchanged. OTHER: No other significant finding. IMPRESSION: Stable chest with blunting of the costophrenic angles consistent with small effusions an d or pleural thickening. Stable cardiomegaly. TECHNICAL DOCUMENTATION: JOB ID: [id number] [employer]- All Rights Reserved Reading location - IP/workstation name: [email or web address]
[2019-08-23 14:33] LABS: ABSOLUTE BASOPHILS # (AUTO) 0.1 10^3/uL (0.0-0.2); ABSOLUTE EOSINOPHILS # (AUTO) 0.1 10^3/uL (0.0-0.6); ABSOLUTE LYMPHOCYTES (AUTO) 0.9 10^3/uL (0.5-4.7); ABSOLUTE MONOCYTES (AUTO) 0.4 10^3/uL (0.1-1.4); ABSOLUTE NEUT (AUTO) 7.4 10^3/uL (1.7-8.2); BASOPHILS % (AUTO) 1.2 % (0-2); EOSINOPHILS % (AUTO) 1.4 % (0-6); HEMATOCRIT 38.2 % (37.9-51.0); HEMOGLOBIN 12.7 g/dL (13.5-17.0); LYMPHOCYTES % (AUTO) 9.9 % (13-45); MEAN CORPUSCULAR HEMOGLOBIN 33.8 pg (27.0-33.4); MEAN CORPUSCULAR HGB CONC 33.2 g/dL (32.0-36.0); MEAN CORPUSCULAR VOLUME 102 fl (80-97); MONOCYTES % (AUTO) 4.9 % (3-13); PLATELET COUNT 164 10^3/uL (150-450); RED BLOOD COUNT 3.75 10^6/uL (4.35-5.55); RED CELL DISTRIBUTION WIDTH 15.6 % (11.5-14.0); SEGMENTED NEUTROPHILS % (AUTO) 82.6 % (42-78); TOTAL CELLS COUNTED % (AUTO) 100 %
--- NOTE | 2019-08-23 15:16 | ER Document Report ---
ED General - General Chief Complaint: Shortness Of Breath Stated Complaint: SHORTNESS OF BREATH,CHEST PAIN Time Seen by Provider: 08/23/19 13:08 Primary Care Provider: CHELSEA,ANA [Primary Care Provider] - Follow up as needed Mode of Arrival: Wheelchair Notes: Very pleasant 73-year-old male with history of coronary artery disease status post CABG and PPM, insulin-dependent diabetes mellitus, HFrEF <20%, CKD presents to the emergency department with chief complaint of acute shortness of breath and weight gain. Patient states that his shortness of breath started about 3 days ago and describes it as a "heaviness". Patient states that he cannot get a full breath, and states that he has had a 10 pound weight gain in the past 1 week. Patient takes furosemide 80 mg p.o. daily and did take his dose today and has been compliant. Patient also states that he has the sensation that feels li ke he has something in his upper chest that he "just cannot get out" consistent with congestion. Patient denies any fevers or chills, denies any dizziness or lightheadedness, denies chest pain, denies acute weakness, denies nausea or vomiting, denies diaphoresis, is urinating normally. No other complaints TRAVEL OUTSIDE OF THE [place] IN LAST 30 DAYS: No - Related Data Allergies/Adverse Reactions: No Known Allergies Allergy (Verified 08/23/19 13:05) Past Medical History - General Information source: Patient - Social History Smoking Status: Unknown if Ever Smoked Chew tobacco use (# tins/day): No Frequency of alcohol use: Occasional Drug Abuse: None Family History: DM Patient has suicidal ideation: No Patient has homicidal ideation: No - Past Medical History Cardiac Medical History: Reports: Hx Congestive Heart Failure, Hx Coronary Artery Disease, Hx Hypercholesterolemia, Hx Hypertension Denies: Hx Atrial Fibrillation Pulmonary Medical History: Denies: Hx Asthma, Hx COPD, Hx Tuberculosis Neurological Medical History: Denies: Hx Seizures Endocrine Medical History: Reports: Hx Diabetes Mellitus Type 2. Denies: Hx Diabetes Mellitus Type 1, Hx Hyperthyroidism, Hx Hypothyroidism Renal/ Medical History: Denies: Hx Peritoneal Dialysis GI Medical History: Denies: Hx Cirrhosis, Hx Crohn's Disease, Hx Hepatitis, Hx Ulcerative Colitis Musculoskeletal Medical History: Reports Hx Arthritis, Denies Hx Gout Skin Medical History: Denies Hx Eczema, Denies Hx Psoriasis Psychiatric Medical History: Denies: Hx Depression Infectious Medical History: Denies: Hx Hepatitis Past Surgical History: Reports: Hx Appendectomy, Hx Cardiac Catheterization, Hx Cardiac Surgery - pacemaker, quadruple bypass, Hx Coronary Artery Bypass Graft, Hx Internal Defibrillator, Hx Orthopedic Surgery - back, susan knees, Hx Pacemaker - AICD, Hx Thyroid Surgery - Immunizations Immunizations up to date: Yes Hx Diphtheria, Pertussis, Tetanus Vaccination: Yes Review of Systems - Review of Systems Constitutional: See HPI EENT: No symptoms reported Cardiovascular: See HPI Respiratory: See HPI Gastrointestinal: See HPI Genitourinary: See HPI Male Genitourinary: No symptoms reported Musculoskeletal: No symptoms reported Skin: No symptoms reported Hematologic/Lymphatic: No symptoms reported Neurological/Psychological: See HPI Physical Exam - Vital signs Vitals: Temp Pulse Resp BP Pulse Ox 98.0 F 62 20 131/87 H 92 08/23/19 13:05 08/23/19 13:05 08/23/19 13:05 08/23/19 13:05 08/23/19 13:05 - Notes Notes: PHYSICAL EXAMINATION: Reviewed vital signs and charting by RN GENERAL: Alert, interacts well. No acute distress. HEAD: Normocephalic, atraumatic. EYES: Pupils equal and round. Extraocular movements intact. ENT: Oral mucosa moist, tongue midline. NECK: Full range of motion. Trachea midline. LUNGS: Clear to auscultation bilaterally, no wheezes, rales, or rhonchi. No respiratory distress. HEART: Regular paced rate and rhythm. No murmur ABDOMEN: soft, non-tender. Distended. Bowel sounds present EXTREMITIES: Moves all 4 extremities spontaneously. Trace bilateral lower extremity pitting edema, No cyanosis. PSYCH: Normal affect, normal mood. SKIN: Warm, dry, normal turgor. No rashes or lesions noted. Course - Re-evaluation Re-evalutation: 08/23/19 17:06 Patient is well-appearing in no acute distress lying in the bed. SPO2 at rest ranges between 91 and 94%, patient does not require baseline O2 at home. EKG showed a dual paced complexes with a rate of 69. Lab work showed a proBN P of 11,000 which is significantly elevated from previous visit on 04/05/2019. Patient was given furosemide 80 mg IV once and it appeared that he did have a response. Patient was ambulated with pulse oximetry and it dropped to 86%. I called the hospitalist, Dr. Mosqueda, who admitted the patient for full admission to the telemetry floor. - Vital Signs Vital signs: Temp Pulse Resp BP Pulse Ox 98.0 F 62 18 151/85 H 91 L 08/23/19 13:05 08/23/19 13:05 08/23/19 15:00 08/23/19 15:00 08/23/19 15:00 - Laboratory Result Diagrams: 08/23/19 14:13 08/23/19 15:30 Laboratory results interpreted by me: 08/23/19 08/23/19 08/23/19 14:13 15:30 15:30 RBC 3.75 L Hgb 12.7 L MCV 102 H MCH 33.8 H RDW 15.6 H Lymph % (Auto) 9.9 L Seg Neutrophils % 82.6 H BUN 41 H Creatinine 1.87 H Est GFR ( Amer) 43 L Est GFR (MDRD) Non-Af 36 L Glucose 125 H Calcium 10.6 H NT-Pro-B Natriuret Pep 42843 H Discharge - Discharge Clinical Impression: Acute exacerbation of CHF (congestive heart failure) Qualifiers: Heart failure type: systolic Qualified Code(s): I50.23 - Acute on chronic systolic (congestive) heart failure Condition: Good Disposition: ADMITTED INPATIENT Admitting Provider: Jaylin Unit Admitted: Telemetry [facility]errals: [facility] [Primary [facility] - Follow up as needed
[2019-08-23] MEDS ORDERED: FUROSEMIDE INJ/PF 40 MG/4 ML SDV IV ONE (15:23)
[2019-08-23 15:55] LABS: ALBUMIN 4.2 g/dL (3.5-5.0); ALKALINE PHOSPHATASE 75 U/L (38-126); ANION GAP 10 (5-19); ASPARTATE AMINO TRANSFERASE 28 U/L (17-59); BILIRUBIN,DIRECT 0.3 mg/dL (0.0-0.4); BILIRUBIN,TOTAL 1.1 mg/dL (0.2-1.3); BLOOD UREA NITROGEN 41 mg/dL (7-20); CALCIUM 10.6 mg/dL (8.4-10.2); CARBON DIOXIDE 27 mmol/L (22-30); CHLORIDE 103 mmol/L (98-107); GLUCOSE 125 mg/dL (75-110); POTASSIUM 4.7 mmol/L (3.6-5.0)
[2019-08-23 16:07] LABS: TROPONIN I 0.025 ng/mL
[2019-08-23] MEDS ORDERED: GLUCAGON,HUMAN RECOMB 1 MG INJ IM PRN (18:44)
[2019-08-23] MEDS ORDERED: DEXTROSE 50%-WATER 25 GM/50 ML DISP.SYRIN IV PRN ×2 (18:44)
[2019-08-23] MEDS ORDERED: DEXTROSE 40% GEL 15 GM TUBE PO PRN ×2 (18:44)
--- NOTE | 2019-08-23 18:44 | PDOC H&P ---
History of Present Illness Admission Date/PCP: 08/23/19 17:22 [facility] Patient complains of: Shortness of breath and leg swelling History of Present Illness: YESIKA PARADA is a 73 year old male with a history of coronary artery disease status post quadruple bypass in 1996, heart failure with reduced ejection fraction EF less than 20% status post [employer] BiVICD placement 6 years ago, diabetes mellitus who presents to the hospital with complaints of dyspnea at rest with worsening on exertion. Patient states that this is been going on for the past 3 days. Endorses mild orthopnea. Denies any PND. Admits to 8 pound weight gain over the past week. Also admits to nonproductive cough. Endorses compliance to his Lasix and has not missed any dose. Patient also states that he is noted leg swelling in the past 4 to 5 days. States that his right leg is typically more swollen than his left leg since he had the vascular bypass. Patient denies any recent surgeries and hemoptysis, immobilization. Patient denies any recent illnesses, sick contacts, or increased salt or fluid intake. Of note patient also admits to increased abdominal girth. He denies any current chest pain. He endorses that he had a left heart catheterization 3-1/2 years ago in [place] which was unremarkable. Past Medical History Cardiac Medical History: Reports: Congestive Heart Failure, Coronary Artery Disease, Hyperlipidema, Hypertension Denies: Atrial Fibrillation Pulmonary Medical History: Denies: Asthma, Chronic Obstructive Pulmonary Disease (COPD), Tuberculosis Neurological Medical History: Denies: Seizures Endocrine Medical History: Reports: Diabetes Mellitus Type 2 Denies: Diabetes Mellitus Type 1, Hyperthyroidism, Hypothyroidism GI Medical History: Denies: Cirrhosis, Crohn's Disease, Hepatitis, Ulcerative Colitis Musculoskeltal Medical History: Reports: Arthritis Denies: Gout Skin Medical History: Denies: Eczema, Psoriasis Psychiatric Medical History: Denies: Depression Hematology: Denies: Anemia, Bleeding Tendencies Past Surgical History Past Surgical History: Reports: Appendectomy, Cardiac Catheterization, Coronary Artery Bypass Graft - Quadruple bypass, Internal Defibrillator, Orthopedic Surgery - back, susan knees, Pacemaker - AICD, Vascular Surgery - Right lower extremity Social History Smoking Status: Unknown if Ever Smoked Electronic Cigarette use?: No Frequency of Alcohol Use: Rare Hx Recreational Drug Use: No Drugs: None Hx Prescription Drug Abuse: No - Advance Directive Resuscitation Status: Full Code Family History Family History: DM, Other - Heart disease Parental Family History Reviewed: Yes Children Family History Reviewed: Yes Sibling(s) Family History Reviewed.: Yes Medication/Allergy Home Medications: Allopurinol [Zyloprim 100 mg Tablet] 100 mg PO DAILY 10/26/18 Aspirin [Aspirin 81 mg Chewable Tablet] 81 mg PO DAILY 10/26/18 Atorvastatin Calcium [Lipitor 80 mg Tablet] 80 mg PO QHS 10/26/18 Carvedilol 25 mg PO DAILY 10/26/18 Furosemide [Lasix] 80 mg PO DAILY 10/26/18 Insulin Glargine,Hum.rec.anlog [Lantus Insulin 100 Unit/mL Insulin Pen] 20 units SUBCUT QHS 10/26/18 Lisinopril [Prinivil] 5 mg PO DAILY 10/26/18 Multivitamin [Multivitamins] 1 tab PO DAILY 10/26/18 Pregabalin [Lyrica 25 mg Capsule] 25 mg PO Q12 10/26/18 Trazodone HCl 25 mg PO QHS 10/26/18 Insulin Regular, Human [Novolin R] 6 unit INJ BIDACBL 10/27/18 Insulin Regular, Human [Novolin R] 10 unit INJ ACSUPPER 10/27/18 Isosorbide Mononitrate [Isosorbide Mononitrate ER] 120 mg PO DAILY 10/27/18 Allergies/Adverse Reactions: No Known Allergies Allergy (Verified 08/23/19 13:05) Review of Systems Constitutional: ABSENT: chills, fever(s) Eyes: ABSENT: visual disturbances Nose, Mouth, and Throat: ABSENT: mouth pain Cardiovascular: PRESENT: dyspnea on exertion, edema, orthropnea. ABSENT: chest pain, palpitations Respiratory: PRESENT: cough, dyspnea. ABSENT: hemoptysis Gastrointestinal: PRESENT: bloating. ABSENT: abdominal pain, hematemesis Genitourinary: ABSENT: dysuria Integumentary: ABSENT: pruritus Neurological: ABSENT: confusion, dizziness Psychiatric: ABSENT: hallucinations Endocrine: ABSENT: heat intolerance Hematologic/Lymphatic: ABSENT: easy bruising Physical Exam Vital Signs: Temp Pulse Resp BP Pulse Ox 97.8 F 73 18 132/84 H 93 08/23/19 17:33 08/23/19 17:33 08/23/19 17:33 08/23/19 17:33 08/23/19 17:33 Intake & Output 08/22/19 08/23/19 08/24/19 06:59 06:59 06:59 Weight 122.47 kg General appearance: PRESENT: no acute distress, cooperative Head exam: PRESENT: normocephalic Eye exam: PRESENT: EOMI Mouth exam: PRESENT: moist Throat exam: ABSENT: tonsillogmegaly Neck exam: PRESENT: other - Positive abdominal jugular reflux. ABSENT: JVD Respiratory exam: PRESENT: crackles - Left lung base Cardiovascular exam: PRESENT: RRR, +S1 Vascular exam: ABSENT: pallor GI/Abdominal exam: PRESENT: distended, normal bowel sounds, soft. ABSENT: firm, guarding, tenderness Rectal exam: PRESENT: deferred Gentrourinary exam: ABSENT: ecchymosis Extremities exam: PRESENT: other - 1+ edema both lower extremities the right is worse than left Musculoskeletal exam: PRESENT: ambulatory Neurological exam: PRESENT: alert, oriented to person, oriented to place, oriented to time, oriented to situation Psychiatric exam: ABSENT: agitated Skin exam: ABSENT: jaundice Results Laboratory Results: 08/23/19 14:13 08/23/19 15:30 08/23/19 08/23/19 08/23/19 14:13 14:13 15:30 WBC 9.0 RBC 3.75 L Hgb 12.7 L Hct 38.2 MCV 102 H MCH 33.8 H MCHC 33.2 RDW 15.6 H Plt Count 164 Seg Neutrophils % 82.6 H Sodium Cancelled 139.7 Potassium Cancelled 4.7 Chloride Cancelled 103 Carbon Dioxide Cancelled 27 Anion Gap Cancelled 10 BUN Cancelled 41 H Creatinine Cancelled 1.87 H Est GFR ( Amer) Cancelled 43 L Est GFR (Non-Af Amer) Cancelled Glucose Cancelled 125 H Calcium Cancelled 10.6 H Total Bilirubin Cancelled 1.1 AST Cancelled 28 Alkaline Phosphatase Cancelled 75 Total Protein Cancelled 7.0 Albumin Cancelled 4.2 08/23/19 08/23/19 14:13 15:30 Troponin I Cancelled 0.025 NT-Pro-B Natriuret Pep Cancelled [id number] H Impressions: Chest X-Ray 08/23/19 13:10 IMPRESSION: Stable chest with blunting of the costophrenic angles consistent with small effusions and or pleural thickening. Stable cardiomegaly. Assessment and Plan - Diagnosis (1) Acute on chronic systolic congestive heart failure, NYHA class 2 Is this a current diagnosis for this admission?: Yes Plan: EKG reviewed showing ventricular pacing. Negative sgarbossi criteria Chest x-ray showing cardiomegaly with mild pulmonary vascular prominence BNP of 11,000 elevated from prior reading of 7000 a few months ago Aggressive diuresis with Lasix IV 40 mg twice daily Strict I's and O's, daily weights, fluid restriction of 1200 ml/day We will continue beta-karoline at this time since patient was taking this at home no need for repeat echo at this time Telemetry Daily EKGs (2) CAD S/P CABG Is this a current diagnosis for this admission?: Yes Plan: Continue with aspirin atorvastatin and Coreg (3) CKD (chronic kidney disease) stage 3, GFR 30-59 ml/min Is this a current diagnosis for this admission?: Yes Plan: Creatinine currently at baseline. Monitor with diuresis (4) Diabetes mellitus type 2 in obese Is this a current diagnosis for this admission?: Yes Plan: Continue home regimen, Accu-Cheks, diabetic diet, sliding scale insulin (5) HTN (hypertension) Qualifiers: Hypertension type: essential hypertension Qualified Code(s): I10 - Essential (primary) hypertension Is this a current diagnosis for this admission?: Yes (6) Elevated troponin Is this a current diagnosis for this admission?: Yes Plan: Likely secondary to demand ischemia from congestive heart failure. Will repeat troponin. EKG showing no evidence of new ischemia she will showing old ventricular pacing - Time Time Spent with patient: 35 or more minutes
[2019-08-23] MEDS ORDERED: INSULIN REGULAR HUMAN 10 UNIT INJ SCH (19:00)
[2019-08-23] MEDS: INSULIN LISPRO 100 UNIT/ML 3 ML VIAL SUBCUT SCH (21:35)
[2019-08-23] MEDS: ATORVASTATIN CALCIUM 80 MG TABLET PO SCH (21:35)
[2019-08-23] MEDS: TRAZODONE HCL 50 MG TABLET PO SCH (21:35)
[2019-08-23] MEDS: PREGABALIN 25 MG CAPSULE PO SCH (21:39)
[2019-08-23] MEDS: HEPARIN SOD (PORCINE) 5,000 UNIT/ML 1 ML VIAL SUBCUT SCH (22:01)
[2019-08-23] MEDS: INSULIN GLARGINE,HUM.REC.ANLOG 1,000 UNIT/10 ML VIAL SUBCUT SCH (22:02)
[2019-08-24 04:52] LABS: ABSOLUTE BASOPHILS # (AUTO) 0.1 10^3/uL (0.0-0.2); ABSOLUTE EOSINOPHILS # (AUTO) 0.2 10^3/uL (0.0-0.6); ABSOLUTE LYMPHOCYTES (AUTO) 1.5 10^3/uL (0.5-4.7); ABSOLUTE MONOCYTES (AUTO) 0.5 10^3/uL (0.1-1.4); ABSOLUTE NEUT (AUTO) 3.6 10^3/uL (1.7-8.2); BASOPHILS % (AUTO) 1.9 % (0-2); EOSINOPHILS % (AUTO) 2.8 % (0-6); HEMATOCRIT 37.5 % (37.9-51.0); HEMOGLOBIN 12.7 g/dL (13.5-17.0); MEAN CORPUSCULAR HEMOGLOBIN 34.2 pg (27.0-33.4); MEAN CORPUSCULAR HGB CONC 33.9 g/dL (32.0-36.0); MEAN CORPUSCULAR VOLUME 101 fl (80-97); MONOCYTES % (AUTO) 9.2 % (3-13); PLATELET COUNT 159 10^3/uL (150-450); RED BLOOD COUNT 3.71 10^6/uL (4.35-5.55); RED CELL DISTRIBUTION WIDTH 15.7 % (11.5-14.0); SEGMENTED NEUTROPHILS % (AUTO) 61.1 % (42-78); TOTAL CELLS COUNTED % (AUTO) 100 %; WHITE BLOOD COUNT 5.8 10^3/uL (4.0-10.5)
[2019-08-24 05:10] LABS: ANION GAP 11 (5-19); BLOOD UREA NITROGEN 45 mg/dL (7-20); CALCIUM 10.6 mg/dL (8.4-10.2); CARBON DIOXIDE 26 mmol/L (22-30); CHLORIDE 107 mmol/L (98-107); GLUCOSE 163 mg/dL (75-110); POTASSIUM 4.5 mmol/L (3.6-5.0)
[2019-08-24] MEDS: HEPARIN SOD (PORCINE) 5,000 UNIT/ML 1 ML VIAL SUBCUT SCH ×4 (05:41→22:11)
[2019-08-24] MEDS: INSULIN LISPRO 100 UNIT/ML 3 ML VIAL SUBCUT SCH ×4 (07:14→22:11)
[2019-08-24] MEDS ORDERED: INSULIN REGULAR HUMAN INJ SCH (08:00)
[2019-08-24] MEDS: INSULIN REG, HUMAN 100 UNIT/ML 3 ML VIAL (PYX) SUBCUT SCH ×4 (08:04→16:07)
[2019-08-24] MEDS: FUROSEMIDE INJ/PF 100 MG/10 ML SDV IV SCH ×3 (09:29→17:25)
[2019-08-24] MEDS: ASPIRIN 81 MG TABLET, CHEWABLE PO SCH (09:34)
[2019-08-24] MEDS: LISINOPRIL 5 MG TABLET PO SCH (09:34)
[2019-08-24] MEDS: ALLOPURINOL 100 MG TABLET PO SCH (09:34)
[2019-08-24] MEDS: PREGABALIN 25 MG CAPSULE PO SCH ×2 (09:34→22:11)
[2019-08-24] MEDS: CARVEDILOL 12.5 MG TABLET PO SCH (09:34)
[2019-08-24] MEDS: ISOSORBIDE MONONITRATE 60 MG TAB.ER.24H PO SCH (09:34)
[2019-08-24] MEDS ORDERED: (PENDING PHARMACY ID) (Isosorbide Mononitrate [Isosorbide Mononitrate Er] 120 MG) PO SCH (10:00)
[2019-08-24] MEDS ORDERED: (PENDING PHARMACY ID) (Carvedilol [Carvedilol] 25 MG) PO SCH (10:00)
[2019-08-24] MEDS ORDERED: FUROSEMIDE INJ/PF 40 MG/4 ML SDV IV SCH (10:00)
--- NOTE | 2019-08-24 12:07 | PDOC PROGRESS REPORT ---
Subjective Progress Note for:: 08/24/19 Subjective:: Patient states that his breathing is better. Denies any current chest pain. Was able to ambulate without much difficulty. Denies any dizziness or lightheadedness. Reason For Visit: HEART FAILURE Physical Exam Vital Signs: Temp Pulse Resp BP Pulse Ox 98.5 F 96 16 136/85 H 96 08/24/19 07:48 08/24/19 07:48 08/24/19 07:48 08/24/19 07:48 08/24/19 07:48 Intake & Output 08/23/19 08/24/19 08/25/19 06:59 06:59 06:59 Intake Total 200 Output Total 850 Balance -650 Weight 118.4 kg General appearance: PRESENT: no acute distress, cooperative Head exam: PRESENT: normocephalic Eye exam: ABSENT: periorbital swelling, scleral icterus Mouth exam: PRESENT: moist Teeth exam: ABSENT: edentulous Neck exam: ABSENT: JVD, tracheal deviation Respiratory exam: PRESENT: crackles - Bibasilar, unlabored. ABSENT: retraction, wheezes Cardiovascular exam: PRESENT: RRR, +S1 Vascular exam: PRESENT: normal capillary refill. ABSENT: pallor GI/Abdominal exam: PRESENT: distended, normal bowel sounds, soft. ABSENT: firm, guarding, tenderness Rectal exam: PRESENT: deferred Extremities exam: ABSENT: calf tenderness, +1 edema - Improved from yesterday Musculoskeletal exam: PRESENT: ambulatory Neurological exam: PRESENT: alert, oriented to person, oriented to place, oriented to time, oriented to situation Psychiatric exam: ABSENT: agitated Results Laboratory Results: 08/24/19 04:19 08/24/19 04:19 08/23/19 08/23/19 08/23/19 14:13 14:13 15:30 WBC 9.0 RBC 3.75 L Hgb 12.7 L Hct 38.2 MCV 102 H MCH 33.8 H MCHC 33.2 RDW 15.6 H Plt Count 164 Seg Neutrophils % 82.6 H Sodium Cancelled 139.7 Potassium Cancelled 4.7 Chloride Cancelled 103 Carbon Dioxide Cancelled 27 Anion Gap Cancelled 10 BUN Cancelled 41 H Creatinine Cancelled 1.87 H Est GFR ( Amer) Cancelled 43 L Est GFR (Non-Af Amer) Cancelled Glucose Cancelled 125 H Calcium Cancelled 10.6 H Magnesium Total Bilirubin Cancelled 1.1 AST Cancelled 28 Alkaline Phosphatase Cancelled 75 Total Protein Cancelled 7.0 Albumin Cancelled 4.2 TSH 08/24/19 08/24/19 08/24/19 04:19 04:19 04:19 WBC 5.8 RBC 3.71 L Hgb 12.7 L Hct 37.5 L MCV 101 H MCH 34.2 H MCHC 33.9 RDW 15.7 H Plt Count 159 Seg Neutrophils % 61.1 Sodium 143.8 Potassium 4.5 Chloride 107 Carbon Dioxide 26 Anion Gap 11 BUN 45 H Creatinine 2.46 H Est GFR ( Amer) 32 L Est GFR (Non-Af Amer) Glucose 163 H Calcium 10.6 H Magnesium 2.0 Total Bilirubin AST Alkaline Phosphatase Total Protein Albumin TSH 1.72 08/23/19 08/23/19 08/23/19 14:13 15:30 21:09 Troponin I Cancelled 0.025 0.028 NT-Pro-B Natriuret Pep Cancelled [id number] H Impressions: Chest X-Ray 08/23/19 13:10 IMPRESSION: Stable chest with blunting of the costophrenic angles consistent with small effusions and or pleural thickening. Stable cardiomegaly. Assessment and Plan - Diagnosis (1) Acute on chronic systolic congestive heart failure, NYHA class 2 Is this a current diagnosis for this admission?: Yes Plan: EKG reviewed showing ventricular pacing. Negative sgarbossi criteria Chest x-ray showing cardiomegaly with mild pulmonary vascular prominence BNP of 11,000 elevated from prior reading of 7000 a few months ago Aggressive diuresis with Lasix IV 80 mg twice daily Strict I's and O's, daily weights, fluid restriction of 1200 ml/day We will continue beta-karoline at this time since patient was taking this at home no need for repeat echo at this time Telemetry Daily EKGs (2) Acute kidney injury superimposed on chronic kidney disease Is this a current diagnosis for this admission?: Yes Plan: Elevation in creatinine expected from commencement of aggressive diuresis. We will continue to monitor. Baseline around 1.8-1.9. (3) CAD S/P CABG Is this a current diagnosis for this admission?: Yes Plan: Continue with aspirin atorvastatin and Coreg (4) CKD (chronic kidney disease) stage 3, GFR 30-59 ml/min Is this a current diagnosis for this admission?: Yes Plan: baseline 1.8 (5) Diabetes mellitus type 2 in obese Is this a current diagnosis for this admission?: Yes Plan: Continue home regimen, Accu-Cheks, diabetic diet, sliding scale insulin (6) HTN (hypertension) Qualifiers: Hypertension type: essential hypertension Qualified Code(s): I10 - Essential (primary) hypertension Is this a current diagnosis for this admission?: Yes (7) Elevated troponin Is this a current diagnosis for this admission?: Yes Plan: secondary to demand ischemia from congestive heart failure. flat trend of troponin. EKG showing no evidence of new ischemia only showing old ventricular pacing - Time Time Spent with patient: 15-24 minutes
--- NOTE | 2019-08-24 20:19 | EKG REPORT ---
SEVERITY:- ABNORMAL ECG - ATRIAL-SENSED VENTRICULAR-PACED COMPLEXES : Confirmed by: Linda Velasquez MD 24-Aug-2019 20:18:30
--- NOTE | 2019-08-24 20:19 | EKG REPORT ---
SEVERITY:- ABNORMAL ECG - A-V DUAL-PACED COMPLEXES W/ SOME INHIBITION : Confirmed by: Linda Velasquez MD 24-Aug-2019 20:18:34
[2019-08-24] MEDS: ATORVASTATIN CALCIUM 80 MG TABLET PO SCH (22:11)
[2019-08-24] MEDS: TRAZODONE HCL 50 MG TABLET PO SCH (22:11)
[2019-08-24] MEDS: INSULIN GLARGINE,HUM.REC.ANLOG 1,000 UNIT/10 ML VIAL SUBCUT SCH (22:13)
[2019-08-25] MEDS ORDERED: GABAPENTIN 100 MG CAPSULE PO ONE (01:00)
[2019-08-25 04:46] LABS: ABSOLUTE BASOPHILS # (AUTO) 0.1 10^3/uL (0.0-0.2); ABSOLUTE EOSINOPHILS # (AUTO) 0.2 10^3/uL (0.0-0.6); ABSOLUTE LYMPHOCYTES (AUTO) 1.5 10^3/uL (0.5-4.7); ABSOLUTE MONOCYTES (AUTO) 0.6 10^3/uL (0.1-1.4); ABSOLUTE NEUT (AUTO) 4.1 10^3/uL (1.7-8.2); BASOPHILS % (AUTO) 1.3 % (0-2); EOSINOPHILS % (AUTO) 3.2 % (0-6); HEMATOCRIT 36.3 % (37.9-51.0); HEMOGLOBIN 12.1 g/dL (13.5-17.0); LYMPHOCYTES % (AUTO) 22.6 % (13-45); MEAN CORPUSCULAR HEMOGLOBIN 33.7 pg (27.0-33.4); MEAN CORPUSCULAR HGB CONC 33.3 g/dL (32.0-36.0); MEAN CORPUSCULAR VOLUME 101 fl (80-97); PLATELET COUNT 148 10^3/uL (150-450); RED BLOOD COUNT 3.59 10^6/uL (4.35-5.55); RED CELL DISTRIBUTION WIDTH 15.6 % (11.5-14.0); SEGMENTED NEUTROPHILS % (AUTO) 63.9 % (42-78); TOTAL CELLS COUNTED % (AUTO) 100 %; WHITE BLOOD COUNT 6.4 10^3/uL (4.0-10.5)
[2019-08-25 05:07] LABS: ANION GAP 8 (5-19); BLOOD UREA NITROGEN 48 mg/dL (7-20); CALCIUM 10.7 mg/dL (8.4-10.2); CARBON DIOXIDE 28 mmol/L (22-30); CHLORIDE 107 mmol/L (98-107); GLUCOSE 90 mg/dL (75-110); POTASSIUM 3.9 mmol/L (3.6-5.0)
[2019-08-25] MEDS: HEPARIN SOD (PORCINE) 5,000 UNIT/ML 1 ML VIAL SUBCUT SCH ×3 (06:30→22:03)
[2019-08-25] MEDS: INSULIN LISPRO 100 UNIT/ML 3 ML VIAL SUBCUT SCH ×4 (09:26→22:07)
[2019-08-25] MEDS: INSULIN REG, HUMAN 100 UNIT/ML 3 ML VIAL (PYX) SUBCUT SCH ×3 (09:27→16:46)
[2019-08-25] MEDS: PREGABALIN 25 MG CAPSULE PO SCH ×2 (09:30→22:08)
[2019-08-25] MEDS: FUROSEMIDE INJ/PF 100 MG/10 ML SDV IV SCH ×2 (09:31→18:00)
[2019-08-25] MEDS: LISINOPRIL 5 MG TABLET PO SCH (09:31)
[2019-08-25] MEDS: ASPIRIN 81 MG TABLET, CHEWABLE PO SCH (09:31)
[2019-08-25] MEDS: GABAPENTIN 100 MG CAPSULE PO SCH ×2 (09:31→18:00)
[2019-08-25] MEDS: CARVEDILOL 12.5 MG TABLET PO SCH (09:31)
[2019-08-25] MEDS: ISOSORBIDE MONONITRATE 60 MG TAB.ER.24H PO SCH (09:32)
[2019-08-25] MEDS: ALLOPURINOL 100 MG TABLET PO SCH (09:33)
--- NOTE | 2019-08-25 12:33 | PDOC PROGRESS REPORT ---
Subjective Progress Note for:: 08/25/19 Subjective:: Patient is breathing better today. Was able to ambulate without much difficulty and less shortness of breath. Swelling is also improved. Reason For Visit: HEART FAILURE Physical Exam Vital Signs: Temp Pulse Resp BP Pulse Ox 98.0 F 60 16 140/72 H 90 L 08/24/19 23:28 08/25/19 07:00 08/24/19 20:00 08/24/19 23:28 08/24/19 23:28 Intake & Output 08/24/19 08/25/19 08/26/19 06:59 06:59 06:59 Intake Total 200 1720 Output Total 850 2685 Balance -650 -965 Weight 118.4 kg 118.2 kg General appearance: PRESENT: no acute distress, cooperative Head exam: PRESENT: atraumatic Mouth exam: PRESENT: moist Neck exam: ABSENT: JVD Respiratory exam: PRESENT: clear to auscultation susan. ABSENT: crackles Cardiovascular exam: PRESENT: RRR, +S1. ABSENT: gallop Vascular exam: ABSENT: pallor GI/Abdominal exam: PRESENT: normal bowel sounds, soft. ABSENT: tenderness Rectal exam: PRESENT: deferred Musculoskeletal exam: PRESENT: ambulatory Neurological exam: PRESENT: alert, awake, oriented to person, oriented to place, oriented to time, oriented to situation Results Laboratory Results: 08/25/19 04:24 08/25/19 04:24 08/25/19 08/25/19 04:24 04:24 WBC 6.4 RBC 3.59 L Hgb 12.1 L Hct 36.3 L MCV 101 H MCH 33.7 H MCHC 33.3 RDW 15.6 H Plt Count 148 L Seg Neutrophils % 63.9 Sodium 143.0 Potassium 3.9 Chloride 107 Carbon Dioxide 28 Anion Gap 8 BUN 48 H Creatinine 2.11 H Est GFR ( Amer) 38 L Glucose 90 Calcium 10.7 H Magnesium 2.0 08/23/19 08/23/19 08/23/19 14:13 15:30 21:09 Troponin I Cancelled 0.025 0.028 NT-Pro-B Natriuret Pep Cancelled [id number] H Impressions: Chest X-Ray 08/23/19 13:10 IMPRESSION: Stable chest with blunting of the costophrenic angles consistent with small effusions and or pleural thickening. Stable cardiomegaly. Assessment and Plan - Diagnosis (1) Acute on chronic systolic congestive heart failure, NYHA class 2 Is this a current diagnosis for this admission?: Yes Plan: Currently improved significantly with diuresis We will continue on aggressive diuresis with Lasix IV 80 mg twice daily for 1 more day and then this de-escalate Strict I's and O's, daily weights, fluid restriction of 1200 ml/day We will continue beta-karoline at this time since patient was taking this at home Telemetry (2) Acute kidney injury superimposed on chronic kidney disease Is this a current diagnosis for this admission?: Yes Plan: Creatinine down trending back towards baseline. Patient's baseline creatinine appears to be between 1.8 and 2.2. We will continue to monitor with diuresis. (3) CAD S/P CABG Is this a current diagnosis for this admission?: Yes Plan: Continue with aspirin atorvastatin and Coreg (4) CKD (chronic kidney disease) stage 3, GFR 30-59 ml/min Is this a current diagnosis for this admission?: Yes Plan: Plan as above (5) Diabetes mellitus type 2 in obese Is this a current diagnosis for this admission?: Yes Plan: Continue home regimen, Accu-Cheks, diabetic diet, sliding scale insulin (6) HTN (hypertension) Qualifiers: Hypertension type: essential hypertension Qualified Code(s): I10 - Essential (primary) hypertension Is this a current diagnosis for this admission?: Yes Plan: Stable - Time Time Spent with patient: 15-24 minutes
--- NOTE | 2019-08-25 19:12 | EKG REPORT ---
SEVERITY:- ABNORMAL ECG - A-V DUAL-PACED COMPLEXES W/ SOME INHIBITION : Confirmed by: Linda Velasquez MD 25-Aug-2019 19:12:12
[2019-08-25] MEDS: INSULIN GLARGINE,HUM.REC.ANLOG 1,000 UNIT/10 ML VIAL SUBCUT SCH (22:08)
[2019-08-25] MEDS: TRAZODONE HCL 50 MG TABLET PO SCH (22:08)
[2019-08-25] MEDS: ATORVASTATIN CALCIUM 80 MG TABLET PO SCH (22:08)
[2019-08-26] MEDS: HEPARIN SOD (PORCINE) 5,000 UNIT/ML 1 ML VIAL SUBCUT SCH (05:52)
[2019-08-26 06:28] LABS: ABSOLUTE BASOPHILS # (AUTO) 0.1 10^3/uL (0.0-0.2); ABSOLUTE EOSINOPHILS # (AUTO) 0.3 10^3/uL (0.0-0.6); ABSOLUTE LYMPHOCYTES (AUTO) 1.1 10^3/uL (0.5-4.7); ABSOLUTE MONOCYTES (AUTO) 0.6 10^3/uL (0.1-1.4); ABSOLUTE NEUT (AUTO) 4.3 10^3/uL (1.7-8.2); BASOPHILS % (AUTO) 1.3 % (0-2); HEMATOCRIT 38.4 % (37.9-51.0); HEMOGLOBIN 12.8 g/dL (13.5-17.0); LYMPHOCYTES % (AUTO) 17.8 % (13-45); MEAN CORPUSCULAR HEMOGLOBIN 33.7 pg (27.0-33.4); MEAN CORPUSCULAR HGB CONC 33.2 g/dL (32.0-36.0); MEAN CORPUSCULAR VOLUME 102 fl (80-97); MONOCYTES % (AUTO) 9.2 % (3-13); PLATELET COUNT 153 10^3/uL (150-450); RED BLOOD COUNT 3.78 10^6/uL (4.35-5.55); RED CELL DISTRIBUTION WIDTH 15.3 % (11.5-14.0); SEGMENTED NEUTROPHILS % (AUTO) 66.7 % (42-78); TOTAL CELLS COUNTED % (AUTO) 100 %; WHITE BLOOD COUNT 6.4 10^3/uL (4.0-10.5)
[2019-08-26 06:49] LABS: ANION GAP 9 (5-19); BLOOD UREA NITROGEN 47 mg/dL (7-20); CALCIUM 10.5 mg/dL (8.4-10.2); CARBON DIOXIDE 28 mmol/L (22-30); CHLORIDE 105 mmol/L (98-107); GLUCOSE 93 mg/dL (75-110)
[2019-08-26] MEDS: INSULIN LISPRO 100 UNIT/ML 3 ML VIAL SUBCUT SCH ×2 (09:12→11:13)
[2019-08-26] MEDS: INSULIN REG, HUMAN 100 UNIT/ML 3 ML VIAL (PYX) SUBCUT SCH (09:13)
[2019-08-26] MEDS: ASPIRIN 81 MG TABLET, CHEWABLE PO SCH (11:12)
[2019-08-26] MEDS: ALLOPURINOL 100 MG TABLET PO SCH (11:12)
[2019-08-26] MEDS: PREGABALIN 25 MG CAPSULE PO SCH (11:12)
[2019-08-26] MEDS: LISINOPRIL 5 MG TABLET PO SCH (11:12)
[2019-08-26] MEDS: ISOSORBIDE MONONITRATE 60 MG TAB.ER.24H PO SCH (11:12)
[2019-08-26] MEDS: FUROSEMIDE INJ/PF 100 MG/10 ML SDV IV SCH (11:13)
[2019-08-26] MEDS: GABAPENTIN 100 MG CAPSULE PO SCH (11:13)
[2019-08-26] MEDS: CARVEDILOL 12.5 MG TABLET PO SCH (11:13)
--- NOTE | 2019-08-26 11:23 | PDOC DISCHARGE SUMMARY ---
Impression - Admit/DC Date/PCP Admission Date/Primary Care Provider: 08/23/19 17:[facility] Discharge Date: 08/26/19 - Discharge Diagnosis (1) Acute on chronic systolic congestive heart failure, NYHA class 2 Is this a current diagnosis for this admission?: Yes (2) Acute kidney injury superimposed on chronic kidney disease Is this a current diagnosis for this admission?: Yes (3) CAD S/P CABG Is this a current diagnosis for this admission?: Yes (4) CKD (chronic kidney disease) stage 3, GFR 30-59 ml/min Is this a current diagnosis for this admission?: Yes (5) Diabetes mellitus type 2 in obese Is this a current diagnosis for this admission?: Yes (6) HTN (hypertension) Is this a current diagnosis for this admission?: Yes - Assessment Summary: Patient is a 73-year-old male with a history of coronary artery disease and systolic heart failure EF less than 21% who presented to the hospital with complaints of shortness of breath increased dyspnea on exertion, weight gain, lower extremity swelling. On presentation patient was noted to have basilar inspiratory crackles as well as lower extremity edema. Chest x-ray revealed pulmonary vascular prominence. BNP was 14,000. Patient was admitted for acute on chronic systolic heart failure and started on aggressive diuresis with Lasix IV 80 mg twice a day. Patient's respiratory status improved patient was able to ambulate without much dyspnea. Patient is now comfortable walking around without lightheadedness dizziness or significant shortness of breath. Patient has BNP at the time of discharge is 6800 and patient is now close to euvolemia. Patient has been instructed to increase his Lasix to 80 mg p.o. 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 - Additional Information Resuscitation Status: Full Code Discharge Diet: Cardiac, Diabetic Discharge Activity: Activity As Tolerated, Balance Activity w/Rest, Weigh Daily Referrals: [facility] [Primary Care Provider] - 08/31/19 (Follow up within 1 week of discharge) Prescriptions: Furosemide [Lasix] 80 mg PO BID #60 Home Medications: Allopurinol [Zyloprim 100 mg Tablet] 100 mg PO DAILY 10/26/18 Aspirin [Aspirin 81 mg Chewable Tablet] 81 mg PO DAILY 10/26/18 Atorvastatin Calcium [Lipitor 80 mg Tablet] 80 mg PO QHS 10/26/18 Carvedilol 25 mg PO DAILY 10/26/18 Insulin Glargine,Hum.rec.anlog [Lantus Insulin 100 Unit/mL Insulin Pen] 20 units SUBCUT QHS 10/26/18 Lisinopril [Prinivil] 5 mg PO DAILY 10/26/18 Multivitamin [Multivitamins] 1 tab PO DAILY 10/26/18 Pregabalin [Lyrica 25 mg Capsule] 25 mg PO Q12 10/26/18 Trazodone HCl 25 mg PO QHS 10/26/18 Insulin Regular, Human [Novolin R] 6 unit SQ BIDBL 10/27/18 Insulin Regular, Human [Novolin R] 10 unit SQ ACSUPPER 10/27/18 Isosorbide Mononitrate [Isosorbide Mononitrate ER] 120 mg PO DAILY 10/27/18 Furosemide [Lasix] 80 mg PO BID #60 08/26/19 History of Present Illiness History of Present Illness: YESIKA PARADA is a 73 year old male with a history of coronary artery disease status post quadruple bypass in 1996, heart failure with reduced ejection fraction EF less than 20% status post [employer] BiVICD placement 6 years ago, diabetes mellitus who presents to the hospital with complaints of dyspnea at rest with worsening on exertion. Patient states that this is been going on for the past 3 days. Endorses mild orthopnea. Denies any PND. Admits to 8 pound weight gain over the past week. Also admits to nonproductive cough. Endorses compliance to his Lasix and has not missed any dose. Patient also states that he is noted leg swelling in the past 4 to 5 days. States that his right leg is typically more swollen than his left leg since he had the vascular bypass. Patient denies any recent surgeries and hemoptysis, immobilization. Patient denies any recent illnesses, sick contacts, or increased salt or fluid intake. Of note patient also admits to increased abdominal girth. He denies any current chest pain. He endorses that he had a left heart catheterization 3-1/2 years ago in [place] which was unremarkable. Physical Exam Vital Signs: Temp Pulse Resp BP Pulse Ox 97.7 F 60 17 119/61 93 08/25/19 23:36 08/26/19 07:00 08/25/19 20:05 08/25/19 23:36 08/25/19 23:36 Intake & Output 08/25/19 08/26/19 08/27/19 06:59 06:59 06:59 Intake Total 1720 720 Output Total 2685 Balance -965 720 Weight 118.2 kg General appearance: PRESENT: no acute distress, cooperative Head exam: PRESENT: normocephalic Eye exam: PRESENT: EOMI Neck exam: ABSENT: JVD, tenderness Respiratory exam: PRESENT: clear to auscultation susan, unlabored. ABSENT: accessory muscle use, chest wall tenderness, crackles, wheezes Cardiovascular exam: PRESENT: +S1, +S2 Vascular exam: PRESENT: normal capillary refill GI/Abdominal exam: PRESENT: normal bowel sounds, soft. ABSENT: tenderness Rectal exam: PRESENT: deferred Extremities exam: ABSENT: pedal edema, +1 edema, +2 edema Neurological exam: PRESENT: alert, awake, oriented to person, oriented to place, oriented to time, oriented to situation Psychiatric exam: PRESENT: normal mood Results Laboratory Results: WBC 6.4 10^3/uL (4.0-10.5) 08/26/19 05:44 RBC 3.78 10^6/uL (4.35-5.55) L 08/26/19 05:44 Hgb 12.8 g/dL (13.5-17.0) L 08/26/19 05:44 Hct 38.4 % (37.9-51.0) 08/26/19 05:44 MCV 102 fl (80-97) H 08/26/19 05:44 MCH 33.7 pg (27.0-33.4) H 08/26/19 05:44 MCHC 33.2 g/dL (32.0-36.0) 08/26/19 05:44 RDW 15.3 % (11.5-14.0) H 08/26/19 05:44 Plt Count 153 10^3/uL (150-450) 08/26/19 05:44 Lymph % (Auto) 17.8 % (13-45) 08/26/19 05:44 [place] % (Auto) 9.2 % (3-13) 08/26/19 05:44 Eos % (Auto) 5.0 % (0-6) 08/26/19 05:44 Baso % (Auto) 1.3 % (0-2) 08/26/19 05:44 Absolute Neuts (auto) 4.3 10^3/uL (1.7-8.2) 08/26/19 05:44 Absolute Lymphs (auto) 1.1 10^3/uL (0.5-4.7) 08/26/19 05:44 Absolute Monos (auto) 0.6 10^3/uL (0.1-1.4) 08/26/19 05:44 Absolute Eos (auto) 0.3 10^3/uL (0.0-0.6) 08/26/19 05:44 Absolute Basos (auto) 0.1 10^3/uL (0.0-0.2) 08/26/19 05:44 Seg Neutrophils % 66.7 % (42-78) 08/26/19 05:44 Sodium 141.7 mmol/L (137-145) 08/26/19 05:44 Potassium 4.0 mmol/L (3.6-5.0) 08/26/19 05:44 Chloride 105 mmol/L (98-107) 08/26/19 05:44 Carbon Dioxide 28 mmol/L (22-30) 08/26/19 05:44 Anion Gap 9 (5-19) 08/26/19 05:44 BUN 47 mg/dL (7-20) H 08/26/19 05:44 Creatinine 1.89 mg/dL (0.52-1.25) H 08/26/19 05:44 Est GFR ( Amer) 43 (>60) L 08/26/19 05:44 Est GFR (Non-Af Amer) Cancelled 08/23/19 14:13 Est GFR (MDRD) Non-Af 35 (>60) L 08/26/19 05:44 Glucose 93 mg/dL (75-110) 08/26/19 05:44 POC Glucose 108 mg/dL (70-110) 08/26/19 06:09 Calcium 10.5 mg/dL (8.4-10.2) H 08/26/19 05:44 Magnesium 2.0 mg/dL (1.6-2.3) 08/25/19 04:24 Total Bilirubin 1.1 mg/dL (0.2-1.3) 08/23/19 15:30 Direct Bilirubin 0.3 mg/dL (0.0-0.4) 08/23/19 15:30 Neonat Total Bilirubin Not Reportable 08/23/19 15:30 Neonat Direct Bilirubin Not Reportable 08/23/19 15:30 Neonat Indirect Bili Not Reportable 08/23/19 15:30 AST 28 U/L (17-59) 08/23/19 15:30 ALT 24 U/L (<50) 08/23/19 15:30 Alkaline Phosphatase 75 U/L (38-126) 08/23/19 15:30 Troponin I 0.028 ng/mL 08/23/19 21:09 NT-Pro-B Natriuret Pep 6800 pg/mL (<125) H 08/26/19 05:44 Total Protein 7.0 g/dL (6.3-8.2) 08/23/19 15:30 Albumin 4.2 g/dL (3.5-5.0) 08/23/19 15:30 EGFR Cancelled 08/23/19 14:13 TSH 1.72 uIU/mL (0.47-4.68) 08/24/19 04:19 08/23/19 08/23/19 08/23/19 14:13 15:30 21:09 Troponin I Cancelled 0.025 0.028 NT-Pro-B Natriuret Pep Cancelled 69924 H 08/26/19 05:44 Troponin I NT-Pro-B Natriuret Pep 6800 H Impressions: Chest X-Ray 08/23/19 13:10 IMPRESSION: Stable chest with blunting of the costophrenic angles consistent with small effusions and or pleural thickening. Stable cardiomegaly. Plan Time Spent: Less than 30 Minutes Stroke Is this a Stroke Patient?: No Acute Heart Failure - Is this a Heart Failure Patient?: Yes Documentation of LVEF assessment?: Yes LVEF < 40%?: Yes-if yes answer questions a through e a) Discharged on ACEI?: Yes b) Discharges on ARB?: N/A-Discharged on ARNI c) Discharged on ARNI?: No-Document Contraindications Reason(s) not discharged on ARNI: ACEI use within the prior 36 hours d) Discharged on evidence-based Beta karoline(carvedilol, sustained release metoprolol succinate, or bisoprolol)?: Yes e) For LVEF <35%, discharged on Aldosterone antagonist?: Yes Reason(s) not discharged on Aldosterone antagonist for LVEF < 35%: Renal dysfunction (creatinine >2.5 mg/dL in men or 2.0 mg/dL in women) 3. Anticoagulant therapy for permanect/persistent/paraoxysmal Afib or Aflutter: N/A
[2019-08-26 11:44] VITALS: BP 140/72
--- NOTE | 2019-08-26 13:09 | EKG REPORT ---
SEVERITY:- ABNORMAL ECG - A-V DUAL-PACED RHYTHM WITH SOME INHIBITION : Confirmed by: Linda Velasquez MD 26-Aug-2019 13:09:00
== END 2019-08-26 12:35 | disposition home or self-care (01) | DRG 291 ==
LOC: ER 12:48 → EH 17:22 → 4W 21:05 → 4S 08-24 16:05
PROVIDERS: ADMIT Internal Medicine; ATTEND Internal Medicine
DX: I13.0 Hypertensive heart and chronic kidney disease with heart failure and stage 1 through stage 4 chronic kidney disease, or unspecified chronic kidney disease (principal); I50.23 Acute on chronic systolic (congestive) heart failure; N17.9 Acute kidney failure, unspecified; I25.10 Atherosclerotic heart disease of native coronary artery without angina pectoris; Z95.1 Presence of aortocoronary bypass graft; E11.22 Type 2 diabetes mellitus with diabetic chronic kidney disease; N18.3 Chronic kidney disease, stage 3 (moderate); R79.89 Other specified abnormal findings of blood chemistry; M19.90 Unspecified osteoarthritis, unspecified site; Z90.49 Acquired absence of other specified parts of digestive tract; Z95.810 Presence of automatic (implantable) cardiac defibrillator; Z83.3 Family history of diabetes mellitus; Z82.49 Family history of ischemic heart disease and other diseases of the circulatory system; Z79.82 Long term (current) use of aspirin; Z79.4 Long term (current) use of insulin; Z79.899 Other long term (current) drug therapy
CPT/HCPCS: 36415; 71046; 80048; 80053; 82962; 83735; 83880; 84443; 84484; 85025; 93005; 93010; 96374; 99285; J1815; J1940; J3490